=== PATIENT | male | born 1950 | race Caucasian/White ===

== ENCOUNTER 2020-07-27 11:47 | Outpatient (REF) | payer MEDICARE, SELFPAY ==
--- NOTE | 2020-07-27 11:55 | XR_ITS ---
EXAMINATION: XR KNEE, LEFT CLINICAL INFORMATION: Left knee pain COMPARISON: None TECHNIQUE: Four views of the left knee. FINDINGS: Bone alignment is normal. No fracture or dislocation is seen. The joint spaces are normal. There is no joint effusion. XR/XR knee LT 2V IMPRESSION: Normal left knee.
== END 2020-07-27 11:48 | disposition home or self-care (01) ==
LOC: HO.XRAY 11:47
PROVIDERS: PCP Internal Medicine; Visit Provider Internal Medicine
DX: M25.562 Pain in left knee (principal)
CPT/HCPCS: 73560

== ENCOUNTER 2020-12-24 03:13 | Emergency (ER) | payer MEDICARE, SELFPAY ==
--- NOTE | ~2020-12-24 | CT_ITS ---
EXAMINATION: CT ABDOMEN AND PELVIS WITHOUT CONTRAST CLINICAL INFORMATION: Abdominal pain. COMPARISON: 12/22/2008. TECHNIQUE: Contiguous axial thin section helical images of the abdomen and pelvis were performed without oral or IV contrast. The data set was reformatted in the coronal and sagittal planes and reviewed on an independent workstation. DLP: 616 mGy-cm. FINDINGS: The visualized lung bases are clear. The visualized portions of the heart are unremarkable. The liver is of normal size and attenuation without focal lesions nor intrahepatic biliary ductal dilation. A normal gallbladder is identified. There is no wall thickening or discernible pericholecystic fluid. The spleen, pancreas, adrenal glands are unremarkable. Both kidneys are of normal size and attenuation without hydronephrosis or nephrolithiasis. There is no abdominal free fluid. There is neither mesenteric nor retroperitoneal lymphadenopathy. There is extensive diverticulosis. There is a small focus of fat stranding and wall thickening about a few of the sigmoid diverticula. Otherwise, unremarkable unopacified loops of small and large bowel are identified. A normal appendix is identified. There is no pelvic free fluid. The urinary bladder is unremarkable. There is neither pelvic nor inguinal lymphadenopathy. Bone windows: Neither sclerotic nor lytic bone lesions are identified. There is disc height loss at L5/S1. CT/CT abdomen pelvis wo con IMPRESSION: Diverticulosis and diverticulitis without drainable fluid collections. Automated exposure control (Care Dose) Adjustment of the mA and/or kv according to patient size (this includes techniques or standardized protocols for targeted exams where dose is matched to indication / reason for exam; i.e. extremities or head).
[2020-12-24 03:34] VITALS: BP 126/70; PULSE 64; RESP 15; TEMP 36; O2SAT 98; BMI 30.6
--- NOTE | 2020-12-24 04:07 | ED.ABDPAIN ---
HPI - Abdominal Pain General Chief Complaint: Abdominal Pain Stated Complaint: Urinary retention Time Seen by Provider: 12/24/20 03:58 Source: patient Mode of arrival: ambulatory Limitations: no limitations History of Present Illness HPI narrative: 70 years old male came in for evaluation of lower abdominal pain with unable to have a bowel movement. Came in with diffuse abdominal pain started 4 days ago feel like pressure inside his belly, patient was unable to have a bowel movement for the past 4 days, able to pass gas, no nausea, no vomiting. Never had surgery in the abdomen. Patient is concerned today because normally have a bowel movement every day. Related Data Home Medications Medication Instructions Recorded Confirmed atorvastatin 1 tab PO DAILY 12/24/20 12/24/20 blood sugar diagnostic [FreeStyle 12/24/20 12/24/20 Lite Strips] lancets [TRUEplus Lancets] 12/24/20 12/24/20 lisinopril 1 tab PO DAILY 12/24/20 12/24/20 metformin 1 tab PO BID 12/24/20 12/24/20 omeprazole 1 cap PO DAILY 12/24/20 12/24/20 Previous Rx's Medication Instructions Recorded ciprofloxacin HCl [Cipro] 500 mg PO Q12H #14 tab 12/24/20 metronidazole [Flagyl] 500 mg PO Q12H #14 tab 12/24/20 Allergies Allergy/AdvReac Type Severity Reaction Status Date / Time No Known Allergies Allergy Unknown Verified 12/24/20 03:44 Review of Systems Review of Systems All other systems are reviewed and are negative Constitutional: Reports as per HPI and Reports no additional constitutional complaints Eyes: Reports as per HPI and Reports no additional eye complaints Reports system reviewed and no additional complaints, except as documented Cardiovascular: Reports as per HPI and Reports no additional cardiovascular complaints Respiratory: Reports as per HPI and Reports no additional respiratory complaints Gastrointestinal: Reports as per HPI and Reports no additional gastrointestinal complaints Genitourinary: Reports no additional female genitourinary complaints Musculoskeletal: Reports no additional musculoskeletal complaints Skin/Breast: Reports system reviewed and no additional complaints, except as docu Psychiatric: Reports no additional psychiatric complaints Endocrine: Reports no additional endocrine complaints Hematologic/Lymphatic: Reports no additional hematologic/lymphatic complaints Allergic/Immunologic: Reports no additional allergic/immunologic complaints Reports system reviewed and no additional complaints, except as documented and Reports Abnormal speech present Physical Exam Vital Signs: Vital Signs: Last Vital Signs Temp 96.8 F 12/24/20 03:34 Pulse 80 12/24/20 05:34 Resp 16 12/24/20 05:34 BP 115/59 L 12/24/20 05:34 Pulse Ox 97 12/24/20 05:34 Body Mass Index 30.6 Vital signs have been reviewed as appeared to be correct. Blood pressure normal. Heart rate normal. Respiration rate normal. Temperature normal. Oxygen saturation normal. Appearance: Alert. Oriented X3. No acute distress. Head: Normal external exam. Normocephalic. Atraumatic. No Merino signs noted. No raccoon eyes noted Eyes: PERRLA. EOMI. Conjunctiva and sclera normal. Eyelids normal. ENT: TM's Normal. Pharynx normal. Uvula midline. Moist mucous membranes. No trismus noted. No drooling noted. No muffled voice noted. Neck: Normal inspection. Neck supple. FROM. No adenopathy. Thyroid Normal. No meningeal signs. No neck mass noted. CVS: Normal heart rate and rhythm. Heart sound normal. No murmurs noted. Pulses normal throughout. Respiratory: No respiratory distress. Painless inspiration. Breath sounds normal. No wheezes/rales/rhonchi noted. Chest nontender. No accessory muscle usage noted or decreased air movement noted. Abdomen: Soft, mild lower abdominal tenderness with no rebound tenderness or guarding.. Bowel sounds normal in all 4 quadrants. No distention noted. No organomegaly noted. No visible injury noted. Back: No CVA tenderness. Full range of motion noted. Skin: Skin warm and dry. Normal skin color. Normal skin turgor. No rashes/lesions/lacerations noted. Extremities: No lower extremity edema. Extremities exhibit normal range of motion. Extremities nontender. Neuro: Oriented X 3. No motor deficit. No sensory deficit. Reflexes normal. Course Course Course Narrative: Assessment and plan. 70-year-old male came in with mild lower abdominal pain and unable to have bowel movement for the past 4 days, no nausea, no vomiting, no diarrhea. Exam is significant for a mild no lower abdominal tenderness with no rebound or guarding, patient has leukocytosis, CT of the abdomen pelvis is consistent with diverticulosis with mild diverticulitis. Patient was given option to stay in the hospital for IV hydration/antibiotic verses go home with p.o. antibiotic patient opted to to go home with oral antibiotic, patient was instructed to return if symptoms is worsening or not getting better. MDM - Abdominal Pain Lab Data Attestation: I reviewed the patient's lab results. Result diagrams: 12/24/20 05:11 12/24/20 05:40 Labs: Lab Results 12/24/20 12/24/20 Range/Units 05:11 05:40 WBC 13.3 H (4.8-10.8) X10*3/uL RBC 4.75 (4.60-5.80) X10*6/uL Hgb 14.1 (14.0-18.0) g/dl Hct 43.9 (42-52) % MCV 92.4 (80-98) fL MCH 29.7 (27.0-33.0) pg MCHC 32.1 (31.0-36.0) g/dl RDW 14.2 (11.0-16.0) % Plt Count 124 L (160-400) X10*3/uL MPV 12.7 H (9.4-12.4) fL Immature Gran % (Auto) 0.3 (0.0-0.4) % Neut % (Auto) 70.0 (45-73) % Lymph % (Auto) 18.3 L (20-40) % Cecil % (Auto) 8.0 (2-11) % Eos % (Auto) 2.9 (0-4) % Baso % (Auto) 0.5 (0-2) % Lymph # (Auto) 2.4 (1.2-4.9) X10*3/uL Cecil # (Auto) 1.1 (0.1-1.2) X10*3/uL Eos # (Auto) 0.4 (0.0-0.4) X10*3/uL Baso # (Auto) 0.1 (0.0-0.2) X10*3/uL Abs Immat Gran (auto) 0.04 H (0.00-0.03) X10*3/uL Absolute Neuts (auto) 9.3 H (2.0-8.3) X10*3/uL Absolute Nucleated RBC 0.000 (0.0-0.012) X10*3/uL Nucleated RBC % (auto) 0.0 (0.0-0.2) /100WBC Smear Tech's Comments VERIFIED Sodium 142 (135-145) mmol/L Potassium 4.4 (3.3-5.1) mmol/L Chloride 106 (96-108) mmol/L Carbon Dioxide 30 H (22-29) mmol/L Anion Gap 10 L (12-20) BUN 15 (9-16) mg/dL Creatinine 0.73 (0.5-1.4) mg/dL Estim Creat Clear Calc 96.2 Estimated GFR > 60 Random Glucose 135 H (60-115) mg/dL Calcium 8.9 (8.4-10.2) mg/dL Total Bilirubin < 0.2 (0.0-1.0) mg/dL Direct Bilirubin < 0.2 (0.0-0.5) mg/dL AST 14 (5-37) U/L ALT 24 (0-40) U/L Alkaline Phosphatase 123 H (39-117) U/L Total Protein 6.6 (6.5-8.0) g/dL Albumin 4.0 (3.5-5.0) g/dL Lipase 16 (8-78) U/L Imaging Data CT scan - abdomen: Radiologist's impression: Diverticulosis and diverticulitis without drainable fluid collections. Discharge Plan Discharge Clinical Impression: Diverticulitis Patient Disposition: Home, Self-Care Instructions: Diverticulitis (ED), Diverticulitis Diet (ED) Prescriptions: New ciprofloxacin HCl [Cipro] 500 mg tablet 500 mg PO Q12H Qty: 14 RF: 0 metronidazole [Flagyl] 500 mg tablet 500 mg PO Q12H Qty: 14 RF: 0 No Action atorvastatin 40 mg tablet 1 tab PO DAILY RF: 0 lisinopril 20 mg tablet 1 tab PO DAILY RF: 0 (DME) FreeStyle Lite Strips Strip MISCELLANEOUS BID RF: 0 metformin 1,000 mg tablet 1 tab PO BID RF: 0 omeprazole 20 mg capsule,delayed release(DR/EC) 1 cap PO DAILY RF: 0 (DME) lancets [TRUEplus Lancets] 33 gauge misc MISCELLANEOUS BID RF: 0 Referrals: Luis F Navarrete MD [Primary Care Provider] - 2 days [facility] Past Medical History Medical History Diabetes High cholesterol Surgical History No history of previous surgery Social History Social History Smoking Status: Current every day smoker Use of substances other than those prescribed or required for medical reasons: No Advance Directives: No Advance Directives Information Provided: No
[2020-12-24 05:15] LABS: Eosinophils Percent Auto 2.9 % (0-4); Imm Gran Abs Auto 0.04 X10*3/uL (0.00-0.03); Imm Gran Pct Auto 0.3 % (0.0-0.4); MANUAL DIFF FLAG SCAN; Neutrophils Absolute Auto 9.3 X10*3/uL (2.0-8.3); PLT CLUMP 1; Red Cell Distribution Width 14.2 % (11.0-16.0); SCAN SMEAR FLAG 1
[2020-12-24 05:17] LABS: Basophils Absolute Auto 0.1 X10*3/uL (0.0-0.2); Basophils Percent Auto 0.5 % (0-2); Eosinophils Absolute Auto 0.4 X10*3/uL (0.0-0.4); Hematocrit 43.9 % (42-52); Hemoglobin 14.1 g/dl (14.0-18.0); Lymphocytes Absolute Auto 2.4 X10*3/uL (1.2-4.9); Lymphocytes Percent Auto 18.3 % (20-40); Mean Corpuscular HGB Conc 32.1 g/dl (31.0-36.0); Mean Corpuscular Hemoglobin 29.7 pg (27.0-33.0); Mean Corpuscular Volume 92.4 fL (80-98); Mean Platelet Volume 12.7 fL (9.4-12.4); Monocytes Absolute Auto 1.1 X10*3/uL (0.1-1.2); Platelet Count 124 X10*3/uL (160-400); Red Blood Count 4.75 X10*6/uL (4.60-5.80); White Blood Count 13.3 X10*3/uL (4.8-10.8)
[2020-12-24 05:34] VITALS: BP 115/59; PULSE 80; RESP 16; O2SAT 97
[2020-12-24 05:36] LABS: SLIDE REVIEW VERIFIED
[2020-12-24 06:00] VITALS: BP 120/68; PULSE 81; RESP 16; TEMP 36.4; O2SAT 99
[2020-12-24 06:15] LABS: Alanine Aminotransferase 24 U/L (0-40); Alkaline Phosphatase 123 U/L (39-117); Anion Gap 10 (12-20); Aspartate Amino Transferase 14 U/L (5-37); Bilirubin Direct < 0.2 mg/dL (0.0-0.5); Bilirubin Total < 0.2 mg/dL (0.0-1.0); Blood Urea Nitrogen 15 mg/dL (9-16); Calcium 8.9 mg/dL (8.4-10.2); Carbon Dioxide 30 mmol/L (22-29); Chloride 106 mmol/L (96-108); Creatinine Clr Calc Pharmacy 96.2; Estimated Glomerular Filt Rate > 60; Glucose Random 135 mg/dL (60-115); Lipase 16 U/L (8-78); Potassium 4.4 mmol/L (3.3-5.1); Sodium 142 mmol/L (135-145); Total Protein 6.6 g/dL (6.5-8.0)
[2020-12-24] MEDS: levoFLOXacin 500 MG TABLET PO (06:40)
[2020-12-24] MEDS: metroNIDAZOLE 500 MG TABLET PO (06:40)
[2020-12-24] MEDS: Ibuprofen 600 MG TABLET PO (06:40)
== END 2020-12-24 07:04 | disposition home or self-care (01) ==
PROVIDERS: Emergency Provider Emergency Medicine; PCP Internal Medicine
DX: K57.32 Diverticulitis of large intestine without perforation or abscess without bleeding (principal); E11.9 Type 2 diabetes mellitus without complications; E78.5 Hyperlipidemia, unspecified; F17.200 Nicotine dependence, unspecified, uncomplicated; Z79.84 Long term (current) use of oral hypoglycemic drugs; Z79.02 Long term (current) use of antithrombotics/antiplatelets
CPT/HCPCS: 36415; 74176; 80048; 80076; 83690; 85025; 99284

== ENCOUNTER 2022-10-16 14:05 | Emergency (ER) | payer MEDICARE, SELFPAY ==
--- NOTE | ~2022-10-16 | CT_ITS ---
EXAMINATION: CT ABDOMEN AND PELVIS WITHOUT CONTRAST CLINICAL INFORMATION: Left lower quadrant pain and constipation COMPARISON: CT abdomen pelvis 12/24/2020 TECHNIQUE: Multidetector volumetric imaging was performed from the superior aspect of the liver through the pubic symphysis. Sagittal and coronal reformatted images were obtained on the technologist's workstation. This CT examination was performed using dose optimization techniques as appropriate, variously including the following: *Automated exposure control *Adjustment of mA and/or kV according to patient size (this includes techniques or standardized protocols for targeted exams where dose is matched to indication/reason for exam; i.e. extremities or head) *Use of iterative reconstruction technique DLP: 584 mGy-cm FINDINGS: LUNG BASES: The visualized lung bases are unremarkable. LIVER, GALLBLADDER, AND BILIARY TREE: The liver is normal in size, shape, and attenuation. No focal hepatic lesion or biliary ductal dilatation is present. The gallbladder is unremarkable with no evidence of radiopaque gallstones, gallbladder wall thickening, or obvious pericholecystic inflammatory changes. PANCREAS: Some punctate calcifications are seen in the pancreas which is otherwise unremarkable SPLEEN: Unremarkable. ADRENAL GLANDS: Unremarkable. KIDNEYS AND URETERS: The kidneys are normal in size, shape, and attenuation. No hydronephrosis, hydroureter, or calculi seen. No perinephric stranding. BLADDER: Unremarkable. GASTROINTESTINAL TRACT: Moderately extensive colonic diverticula are present. At the junction of the descending colon and sigmoid, there is an area of inflammatory change seen around the colon consistent with acute uncomplicated diverticulitis. Similar changes were present on the 12/24/2020 study in a similar location. No extraluminal gas. No drainable fluid collection. A duodenal diverticulum is present. The small and large bowel are otherwise unremarkable. The appendix is unremarkable. ABDOMINAL WALL: No significant hernia is appreciated. LYMPH NODES: No retroperitoneal lymphadenopathy VASCULAR: Unremarkable. PELVIC VISCERA: Mild BPH. Seminal vesicles normal. OSSEOUS STRUCTURES: Mild degenerative changes seen in the spine. CT/CT abdomen pelvis wo IV con IMPRESSION: Acute uncomplicated diverticulitis at the junction of the descending colon and sigmoid. Fleischner guidelines were followed.
[2022-10-16 14:54] VITALS: BP 153/72; PULSE 72; RESP 16; TEMP 35.9; O2SAT 97; BMI 29.1
--- NOTE | 2022-10-16 14:54 | ED_ITS ---
HPI - Abdominal Pain General Chief Complaint: Abdominal Pain Stated Complaint: LLQ pain sent by PCP Time Seen by Provider: 10/16/22 18:13 Source: patient Mode of arrival: ambulatory Limitations: no limitations History of Present Illness HPI narrative: 72 y/o male with history of HTN, DM2, HLD and history of diverticulitis who presents to the ER for evaluation of LLQ pain that started 5 days ago. He also reports constipation with no BM in those 5 days. No nausea, vomiting, fever, chills, urinary symptoms, back pain. He reports the pain comes and goes in the left lower quadrant, left pelvic area, aching and mild. MD elicited complaint: abdominal pain Pertinent past history: diverticulitis Pain Consistency: intermittent Location: LLQ Severity: mild Quality: aching Radiation: none Exacerbating factors: nothing Relieving factors: nothing Context: history of similar episodes Associated symptoms: constipation Related Data Home Medications Medication Instructions Recorded Confirmed atorvastatin 40 mg tablet 1 tab PO DAILY 12/24/20 12/24/20 blood sugar diagnostic (FreeStyle 12/24/20 12/24/20 Lite Strips) lancets 33 gauge (TRUEplus Lancets) 12/24/20 12/24/20 lisinopril 20 mg tablet 1 tab PO DAILY 12/24/20 12/24/20 metformin 1,000 mg tablet 1 tab PO BID 12/24/20 12/24/20 omeprazole 20 mg capsule,delayed 1 cap PO DAILY 12/24/20 12/24/20 release Previous Rx's Medication Instructions Recorded ciprofloxacin HCl 500 mg tablet 500 mg PO Q12H #14 tabs 12/24/20 (Cipro) ciprofloxacin HCl 500 mg tablet 500 mg PO Q12H #14 tabs 12/24/20 (Cipro) ciprofloxacin HCl 500 mg tablet 500 mg PO Q12H #14 tabs 12/24/20 (Cipro) metronidazole 500 mg tablet 500 mg PO BID #14 tabs 12/24/20 (Flagyl) metronidazole 500 mg tablet 500 mg PO Q12H #14 tabs 12/24/20 (Flagyl) ciprofloxacin HCl 500 mg tablet 500 mg PO Q12H #20 tabs 10/16/22 ibuprofen 600 mg tablet 600 mg PO Q8H PRN pain #14 tabs 10/16/22 metronidazole 500 mg tablet 500 mg PO BID 10 days #20 tabs 10/16/22 polyethylene glycol 3350 17 17 g PO BID #119 grams 10/16/22 gram/dose oral powder (Miralax) sennosides 8.6 mg capsule (senna) 8.6 mg PO DAILY #14 caps 10/16/22 Allergies Allergy/AdvReac Type Severity Reaction Status Date / Time No Known Allergies Allergy Unknown Verified 12/24/20 03:44 Review of Systems Review of Systems Yes all other systems are reviewed and are negative [facility] Past Medical History Medical History Diabetes High cholesterol Surgical History No history of previous surgery Social History Social History Advance Directives: No Advance Directives Information Provided: Yes Physical Exam ED Vital Signs: Vital Signs - 24 hr 10/16/22 14:54 Temperature 96.6 F L Pulse Rate 72 Respiratory Rate 16 Blood Pressure 153/72 H Pulse Oximetry 97 Oxygen Delivery Method Room Air BMI result Body Mass Index 29.1 Appearance: Alert. Oriented X3. No acute distress. HEENT: normal external inspection Neck: Normal inspection. Neck supple. CVS: Normal heart rate and rhythm. Pulses normal. Respiratory: No respiratory distress. Breath sounds normal. Abdomen: Soft with mild LLQ tenderness, no rebound or guarding. +BS x4 Skin: Skin warm and dry. Normal skin color. Normal skin turgor. No rashes. Extremities: Normal inspection x4 Neuro: Oriented X 3. Grossly normal, nonfocal Course Course Course Narrative: RME - 72 yo male with history of DM, HTN, HLD and diverticulitis presenting with LLQ pain with constipation, last BM 5 days ago. No N/V/D or signs of obstruction. Labs and CT scan ordered from triage. Stable to go back to waiting room until treatment room available. Reevaluation(s) Reevaluation #1: WBC 12.[address] scan showing acute uncomplicated diverticulitis of the junction of the descending colon and sigmoid colon. No evidence of abscess. Patient reports only mild pain in left lower quadrant only. No radiation of the pain. No vomiting. No fevers. Comfortable discharge home with oral antibiotics, pain control. Medical Decision Making Differential Diagnosis Differential Diagnoses: The differential diagnosis associated with the presentation includes Constipation, diverticulitis, diverticular abscess, colon perforation, bowel obstruction, gastroenteritis, UTI, kidney stone Admission/Observation Consideration of admission/observation: Escalation of care including admission/observation considered Mild leukocytosis, tolerating p.o., pain well controlled, comfortable discharge home Lab Data MDM Lab Attestation statement: I reviewed the patient's lab results. Mild leukocytosis, mild hyperglycemia, normal renal function. 10/16/22 16:35 10/16/22 16:35 Labs: Lab Results 10/16/22 10/16/22 Range/Units 16:35 16:35 WBC 12.2 H (4.8-10.8) X10*3/uL RBC 4.73 (4.60-5.80) X10*6/uL Hgb 14.6 (14.0-18.0) g/dl Hct 43.0 (42.0-52.0) % MCV 90.9 (80.0-98.0) fL MCH 30.9 (27.0-33.0) pg MCHC 34.0 (31.0-36.0) g/dl RDW 14.3 (11.0-16.0) % Plt Count 174 (160-400) X10*3/uL MPV 12.4 (9.4-12.4) fL Immature Gran % (Auto) 0.5 H (0.0-0.4) % Neut % (Auto) 67.7 (45-73) % Lymph % (Auto) 19.8 L (20-40) % Terrell % (Auto) 8.0 (2-11) % Eos % (Auto) 3.3 (0-4) % Baso % (Auto) 0.7 (0-2) % Lymph # (Auto) 2.4 (1.2-4.9) X10*3/uL Terrell # (Auto) 1.0 (0.1-1.2) X10*3/uL Eos # (Auto) 0.4 (0.0-0.4) X10*3/uL Baso # (Auto) 0.1 (0.0-0.2) X10*3/uL Abs Immat Gran (auto) 0.06 H (0.00-0.03) X10*3/uL Absolute Neuts (auto) 8.3 (2.0-8.3) x10*3/uL Absolute Nucleated RBC 0.000 (0.0-0.012) X10*3/uL Nucleated RBC % (auto) 0.0 (0.0-0.2) /100WBC Sodium 142 (135-145) mmol/L Potassium 4.2 (3.3-5.1) mmol/L Chloride 106 (96-108) mmol/L Carbon Dioxide 27 (22-29) mmol/L Anion Gap 13 (12-20) BUN 16 (9-16) mg/dL Creatinine 0.76 (0.5-1.4) mg/dL Estim Creat Clear Calc 87.8 Estimated GFR > 60 Random Glucose 172 H (60-115) mg/dL Calcium 9.4 (8.4-10.2) mg/dL Magnesium 2.0 (1.6-2.6) mg/dL Total Bilirubin 0.3 (0.0-1.0) mg/dL Direct Bilirubin < 0.2 (0.0-0.5) mg/dL AST 14 (5-37) U/L ALT 38 (0-40) U/L Alkaline Phosphatase 133 H (39-117) U/L Total Protein 7.3 (6.5-8.0) g/dL Albumin 4.2 (3.5-5.0) g/dL Radiology Impression Discussion of test interpretation with radiology: I have reviewed the radiologist's reading. Radiologist Impression: CT/CT abdomen pelvis wo IV con IMPRESSION: Acute uncomplicated diverticulitis at the junction of the descending colon and sigmoid. External Record Review External record reviewed: Office record, Outpatient record, Prior outpatient labs and Prior outpatient radiology Prescription Management I considered prescription management with: Pain Medication and Antibiotic Critical Care Time Critical Care Time Critical Care Time: No Discharge Plan Discharge Clinical Impression: Diverticulitis Patient Disposition: Home, Self-Care Instructions: Diverticulitis (ED), Diverticulitis Diet (ED) Additional Instructions: Your CT scan showed diverticulitis. Take all of the medications as directed Follow up with your doctor next week. If you develop new or worsening symptoms call 911 or come back to the ER for fu rther evaluation. Weldon tomograf?a computarizada mostr? diverticulitis. [address] todos los medicamentos seg?n las indicaciones. Seguimiento con weldon m?dico la pr?xima semana. Si desarrolla s?ntomas nuevos o que empeoran, llame al 911 o regrese a la pato de emergencias para toby evaluaci?n adicional. Prescriptions: New ciprofloxacin HCl 500 mg tablet 500 mg PO Q12H Qty: 20 0RF ibuprofen 600 mg tablet 600 mg PO Q8H PRN (Reason: pain) Qty: 14 0RF metronidazole 500 mg tablet 500 mg PO BID 10 Days Qty: 20 0RF polyethylene glycol 3350 [Miralax] 17 gram/dose powder 17 g PO BID Qty: 119 0RF senna 8.6 mg capsule 8.6 mg PO DAILY Qty: 14 0RF No Action atorvastatin 40 mg tablet 1 tab PO DAILY lisinopril 20 mg tablet 1 tab PO DAILY (DME) FreeStyle Lite Strips Strip MISCELLANEOUS BID metformin 1,000 mg tablet 1 tab PO BID omeprazole 20 mg capsule,delayed release(DR/EC) 1 cap PO DAILY (DME) lancets [TRUEplus Lancets] 33 gauge misc MISCELLANEOUS BID ciprofloxacin HCl [Cipro] 500 mg tablet 500 mg PO Q12H Qty: 14 0RF metronidazole [Flagyl] 500 mg tablet 500 mg PO Q12H Qty: 14 0RF ciprofloxacin HCl [Cipro] 500 mg tablet 500 mg PO Q12H Qty: 14 0RF metronidazole [Flagyl] 500 mg tablet 500 mg PO BID Qty: 14 0RF ciprofloxacin HCl [Cipro] 500 mg tablet 500 mg PO Q12H Qty: 14 0RF Referrals: Luis F Navarrete MD [Primary Care Provider] - Interventions: ED Discharge Assessment Last Done: 10/16/22 18:20 Discharge Date/Time: 10/16/22 18:20 Print Language: Tajik
[2022-10-16 16:40] LABS: MANUAL DIFF FLAG NO
[2022-10-16 16:44] LABS: Basophils Absolute Auto 0.1 X10*3/uL (0.0-0.2); Basophils Percent Auto 0.7 % (0-2); Eosinophils Absolute Auto 0.4 X10*3/uL (0.0-0.4); Eosinophils Percent Auto 3.3 % (0-4); Hemoglobin 14.6 g/dl (14.0-18.0); Imm Gran Abs Auto 0.06 X10*3/uL (0.00-0.03); Imm Gran Pct Auto 0.5 % (0.0-0.4); Lymphocytes Absolute Auto 2.4 X10*3/uL (1.2-4.9); Lymphocytes Percent Auto 19.8 % (20-40); Mean Corpuscular Hemoglobin 30.9 pg (27.0-33.0); Mean Corpuscular Volume 90.9 fL (80.0-98.0); Mean Platelet Volume 12.4 fL (9.4-12.4); Neutrophils Absolute Auto 8.3 x10*3/uL (2.0-8.3); Neutrophils Percent Auto 67.7 % (45-73); Platelet Count 174 X10*3/uL (160-400); Red Blood Count 4.73 X10*6/uL (4.60-5.80); Red Cell Distribution Width 14.3 % (11.0-16.0); White Blood Count 12.2 X10*3/uL (4.8-10.8)
[2022-10-16 17:05] LABS: Alanine Aminotransferase 38 U/L (0-40); Albumin Level 4.2 g/dL (3.5-5.0); Alkaline Phosphatase 133 U/L (39-117); Anion Gap 13 (12-20); Aspartate Amino Transferase 14 U/L (5-37); Bilirubin Direct < 0.2 mg/dL (0.0-0.5); Bilirubin Total 0.3 mg/dL (0.0-1.0); Blood Urea Nitrogen 16 mg/dL (9-16); Calcium 9.4 mg/dL (8.4-10.2); Carbon Dioxide 27 mmol/L (22-29); Chloride 106 mmol/L (96-108); Creatinine Clr Calc Pharmacy 87.8; Estimated Glomerular Filt Rate > 60; Glucose Random 172 mg/dL (60-115); Potassium 4.2 mmol/L (3.3-5.1); Sodium 142 mmol/L (135-145); Total Protein 7.3 g/dL (6.5-8.0)
== END 2022-10-16 18:20 | disposition home or self-care (01) ==
PROVIDERS: Physician Assistant; Emergency Provider Emergency Medicine; PCP Internal Medicine
DX: K57.32 Diverticulitis of large intestine without perforation or abscess without bleeding (principal); R10.32 Left lower quadrant pain; Z79.899 Other long term (current) drug therapy
CPT/HCPCS: 36415; 74176; 80048; 80076; 83735; 85025; 99282; 99284

== ENCOUNTER 2023-03-08 08:15 | Day surgery (SDC) | payer MEDICARE, SELFPAY ==
[2023-03-08 08:39] VITALS: BMI 27.9
[2023-03-08 09:05] VITALS: BP 127/73; PULSE 59; RESP 18; TEMP 36.6; O2SAT 97
[2023-03-08 09:13] LABS: Glucose, Whole Blood 125 mg/dL (60-115)
[2023-03-08] MEDS: Lactated Ringers 1,000 ML 50 ML IVCONT (09:16)
--- NOTE | 2023-03-08 09:34 | HO.ANESPROP2 ---
COUNT INCLUDES THE [facility] Past Medical History Medical History (Updated 03/07/23 @ 11:57 by Trista Etienne RN) Back pain Depression Diabetes High cholesterol HTN (hypertension) Kidney stones Sleep apnea Spinal stenosis Family History Family history of problems with anesthesia: No Surgical History Surgical History H/O colonoscopy H/O hemorrhoidectomy H/O inguinal hernia repair History of Problems with Anesthesia: No Social History Social History Patient Tobacco Use Status: Current everyday Tobacco user Smoked in Last 30 Days: Yes Patient Interested in Nicotine Replacement: No Are you DNR?: No Advance Directives: No Advance Directives Information Provided: Yes Nutrition Risks: No Nutritional Risk Meds Allergies Allergy/AdvReac Type Severity Reaction Status Date / Time No Known Allergies Allergy Unknown Verified 03/08/23 09:20 Active Medications: Current Medications Lactated Ringer's (Lr) 1,000 mls @ 50 mls/hr IVCONT .Q20H BERNADETTE Last Admin: 03/08/23 09:16 Dose: 50 mls/hr Sodium Biphosphate/Sodium Phosphate (Sodium Phosphate,Toole-Dibasic 133 Ml Enema) 133 ml [place] ONCE PRN PRN Reason: Poor Colonoscopy Prep Results Home Medications Medication Instructions Recorded Confirmed Last Taken Type atorvastatin 40 mg tablet 1 tab PO DAILY 12/24/20 12/24/20 Unknown History blood sugar diagnostic (FreeStyle 12/24/20 12/24/20 Unknown History Lite Strips) lancets 33 gauge (TRUEplus Lancets) 12/24/20 12/24/20 Unknown History lisinopril 20 mg tablet 1 tab PO DAILY 12/24/20 12/24/20 Unknown History omeprazole 20 mg capsule,delayed 1 cap PO DAILY 12/24/20 12/24/20 Unknown History release glipizide 10 mg tablet, extended 10 mg PO QAM 03/07/23 03/07/23 Unknown History release 24 hr metformin 1,000 mg tablet 1,000 mg PO BID 03/07/23 03/07/23 Unknown History Exam Exam Date and Time: March 08, 2023 0934 Height,Weight and Vital Signs: Height 5 ft 6 in Weight 78.471 kg Last Vital Signs Temp 97.9 F 03/08/23 09:05 Pulse 59 03/08/23 09:05 Resp 18 03/08/23 09:05 BP 127/73 03/08/23 09:05 Pulse Ox 97 03/08/23 09:05 O2 Del Method Room Air 03/08/23 09:05 Pertinent Lab Results Pertinent Lab Results: Laboratory Tests 03/08/23 08:56 POC Glucose 125 H Airway Mallampati Class: III TM Dist: >3cm Neck ROM: Full Assessment and Plan Assessment Anesthesia Assessment: Anesthesia Plan Discussed and Chart Reviewed Final Anesthetic Review Family History of Problems with Anesthesia: No History of Problems with Anesthesia: No NPO: Yes ASA Class: III Final Preanesthetic Review: No Changes in Pt Med Stat, Meds/Allgs Chart Reviewed, Consent Obtained/Reviewed and Anes Risks/Benef Reviewed Patient Risk: Low Procedure Risk: Low Anesthetic Plan Anesthetic Plan: MAC: Disposition: Standard PACU
[2023-03-08 10:17] VITALS: BP 115/69; PULSE 60; RESP 15; TEMP 36.4; O2SAT 96
--- NOTE | 2023-03-08 10:17 | P.BOP_ITS ---
Brief Operative Note Date of Service: 03/08/23 Pre-op diagnosis: Screening Post-op diagnosis: other (Colon polyp) Procedure: Colonoscopy to the cecum with hot snare polypectomy Surgeon: Prakash Sheth Anesthesia: MAC Was an Automatic Equipment Technician used for this Procedure?: No Estimated blood loss (mL): 0 Pathology: other (A. Polyp at 60cm) Condition: stable Disposition: PACU
[2023-03-08 10:32] VITALS: BP 144/78; PULSE 69; RESP 18; TEMP 36.4; O2SAT 99
--- NOTE | 2023-03-08 21:50 | OP_ITS ---
DATE OF SERVICE: 03/08/2023 SURGEON: Prakash Sheth MD INDICATIONS: The patient presents for followup of colorectal cancer screening and personal history of tubular adenoma of the colon. Full consent has been obtained from him for this, including risks of bleeding and perforation. PREOPERATIVE DIAGNOSIS: Colorectal cancer screening and personal history of tubular adenoma of the colon. POSTOPERATIVE DIAGNOSIS: PROCEDURE PERFORMED: Colonoscopy to the cecum with hot snare polypectomy. ESTIMATED BLOOD LOSS: COMPLICATIONS: ANESTHESIA: Monitored anesthesia care. ASSISTANTS: SPECIMENS: POSTOPERATIVE DIAGNOSES: Colorectal cancer screening and personal history of tubular adenoma of the colon, colon polyp, diverticulosis and internal hemorrhoids. DESCRIPTION OF PROCEDURE: The patient was placed in the left lateral decubitus position. The digital rectal exam revealed a somewhat diminished sphincter tone and some hemorrhoidal tissue. The Olympus video pediatric colonoscope was entered into the rectum and advanced into the cecum with the assistance of abdominal pressure. Once in the cecum, I did identify a cecal pouch with appendiceal orifice and a normal-appearing ileocecal valve. There was transillumination of light deep in the right lower quadrant. I did have to irrigate and suction the cecum to be able to obtain a good visualization. The scope was then slowly withdrawn, assessing all mucosal surfaces carefully. Preparation throughout the colon was for the most part good, but did require a lot of suctioning and irrigation. At 60 cm was an approximately 12 mm polyp, which was removed by hot snare polypectomy and recovered by suction. The polypectomy site appeared clean, without any sign of residual polyp nor bleeding. I did not visualize any other polyps, colitis, or angiodysplasia. There was a mild amount of sigmoid diverticulosis. In the rectum, scope was retroflexed visualizing internal hemorrhoids, but no other pathology. The rectal mucosa appeared normal. The scope was straightened and withdrawn from the patient. He tolerated the procedure well and was returned to recovery area in stable condition. IMPRESSION: 1. Colon polyp. 2. Diverticulosis. 3. Internal and external hemorrhoids. PLAN: The results of the pathology will be checked. I would recommend a repeat colonoscopy in 3 years for further screening and surveillance given the finding of another polyp and the somewhat limited prep. He was advised not to use any aspirin and NSAIDs for 1 week. This has been discussed with the son. MD ELDA Aguilar/ABDOULAYE / [id number]
== END 2023-03-08 10:51 | disposition home or self-care (01) ==
PROVIDERS: Visit Provider Internal Medicine
PROC: 0DJD8ZZ Inspection of Lower Intestinal Tract, Via Natural or Artificial Opening Endoscopic (ICD-10-PCS; CPT 45378; principal; 2023-03-08 10:00)
DX: Z12.11 Encounter for screening for malignant neoplasm of colon (principal); Z86.010 Personal history of colon polyps; Z87.19 Personal history of other diseases of the digestive system; D12.4 Benign neoplasm of descending colon; K57.30 Diverticulosis of large intestine without perforation or abscess without bleeding; K64.8 Other hemorrhoids; K64.4 Residual hemorrhoidal skin tags; I10 Essential (primary) hypertension; E78.00 Pure hypercholesterolemia, unspecified; G47.30 Sleep apnea, unspecified; F32.A Depression, unspecified; E11.9 Type 2 diabetes mellitus without complications; Z87.442 Personal history of urinary calculi; Z79.84 Long term (current) use of oral hypoglycemic drugs; Z79.899 Other long term (current) drug therapy; F17.210 Nicotine dependence, cigarettes, uncomplicated
CPT/HCPCS: 45385; 82947; 88305

== ENCOUNTER 2023-07-11 09:34 | Outpatient (REF) | payer MEDICARE, SELFPAY ==
[2023-07-11 12:43] LABS: Prostate Specific Antigen 1.16 ng/mL (<0.05-4.0)
== END 2023-07-11 09:35 | disposition home or self-care (01) ==
LOC: HO.HHCL 09:34
PROVIDERS: Visit Provider Family Medicine
DX: R31.9 Hematuria, unspecified (principal); Z12.5 Encounter for screening for malignant neoplasm of prostate
CPT/HCPCS: 36415; 84153; 87086

== ENCOUNTER 2023-07-12 11:03 | Outpatient (REF) | payer MEDICARE, SELFPAY | END 2023-07-12 11:04 | disposition home or self-care (01) | LOC: HO.US 11:03 | PROVIDERS: Visit Provider Family Medicine | DX: Z13.89 Encounter for screening for other disorder (principal) ==

== ENCOUNTER 2023-08-12 10:36 | Outpatient (REF) | payer MEDICARE, SELFPAY ==
--- NOTE | ~2023-08-12 | US_ITS ---
EXAMINATION: US RETROPERITONEAL COMPLETE (RENAL) CLINICAL INFORMATION: Hematuria, history of renal stones, rule out mass, hydronephrosis, stones. COMPARISON: CT abdomen and pelvis without contrast 10/16/2022. TECHNIQUE: Real-time imaging of the kidneys and bladder. Limited visualization due to bowel gas. FINDINGS: RIGHT KIDNEY: 10.5 x 6.8 x 6.0 cm (SAG x AP x TRV). No hydronephrosis. No renal calculi. Renal cortical thickness is normal. Limited visualization. LEFT KIDNEY: 11.7 x 5.7 x 5.3 cm (SAG x AP x TRV). No hydronephrosis. No renal calculi. Renal cortical thickness is normal. Limited visualization. Left medial 1.5 x 1.3 x 1.2 cm cyst with benign features. There is no indication for follow-up imaging. BLADDER: Well-distended. Bilateral ureteral jets are demonstrated. Prevoid bladder volume is 423 mL. Postvoid bladder volume is 46.9 mL. ADDITIONAL FINDINGS: Enlarged prostate with volume 42.4 mL and echogenic foci characteristic of coarse calcifications. US/US retroperitoneal comp IMPRESSION: 1. No hydronephrosis. No renal calculi. Limited visualization. 2. Enlarged prostate. Post void bladder volume is 46.9 mL.
== END 2023-08-12 10:37 | disposition home or self-care (01) ==
LOC: HO.US 10:36
PROVIDERS: Visit Provider Family Medicine
DX: R31.9 Hematuria, unspecified (principal)
CPT/HCPCS: 76770

== ENCOUNTER 2023-08-28 08:03 | Outpatient (REF) | payer MEDICARE, SELFPAY ==
[2023-08-28 11:59] LABS: Creatinine Urine 141.46 mg/dL; Microalbum/Creatinine Ratio Ur 4.2 ug/mg cr (<30)
[2023-08-28 12:02] LABS: Alanine Aminotransferase 34 U/L (0-40); Albumin Level 4.2 g/dL (3.5-5.0); Alkaline Phosphatase 107 U/L (39-117); Anion Gap 14 (12-20); Aspartate Amino Transferase 19 U/L (5-37); Bilirubin Total 0.4 mg/dL (0.0-1.0); Blood Urea Nitrogen 22 mg/dL (9-16); Calcium 9.7 mg/dL (8.4-10.2); Carbon Dioxide 26 mmol/L (22-29); Chloride 109 mmol/L (96-108); Cholesterol 84 mg/dL (<200); Estimated Glomerular Filt Rate > 60; Glucose Random 127 mg/dL (60-115); HDL Cholesterol 26 mg/dL (>40); LDL Cholesterol Calculated 41 mg/dL (<100); Sodium 144 mmol/L (135-145); Total Protein 7.4 g/dL (6.5-8.0); Triglycerides 85 mg/dL (<150)
[2023-08-28 12:03] LABS: ~HepC Num1 0.13 S/CO (0.00-0.79); ~Hepatitis C Antibody Nonreactive (Nonreactive)
== END 2023-08-28 08:04 | disposition home or self-care (01) ==
LOC: HO.HHCL 08:03
PROVIDERS: Visit Provider Nurse Practitioner Family
DX: E11.9 Type 2 diabetes mellitus without complications (principal)
CPT/HCPCS: 36415; 80053; 80061; 82043; 82570; 86803

== ENCOUNTER 2023-10-03 08:37 | Outpatient (REF) | payer MEDICARE, SELFPAY ==
--- NOTE | ~2023-10-03 | US_ITS ---
EXAMINATION: US RETROPERITONEAL LIMITED (AORTA) CLINICAL INFORMATION: Tobacco abuse. COMPARISON: CT abdomen and pelvis 10/16/2022. TECHNIQUE: Ward-scale, color Doppler and spectral Doppler evaluation of the abdominal aorta. FINDINGS: The aorta is normal in caliber. The measurements of the aorta in maximum AP and transverse dimensions respectively are as follows: Proximal: 2.9 x 2.3 cm. Mid: 2.4 x 1.5 cm. Distal: 2.3 x 1.8 cm. PSV: 47.7 cm/s. The measurements of the common iliac arteries in maximum AP and TRV dimensions are as follows: Right Common Iliac Artery: 1.5 x 0.9 cm. Left Common Iliac Artery: 1.3 x 0.9 cm. US/US aorta IMPRESSION: Negative for abdominal aortic aneurysm.
== END 2023-10-03 08:38 | disposition home or self-care (01) ==
LOC: HO.US 08:37
PROVIDERS: Visit Provider Nurse Practitioner Family
DX: Z13.6 Encounter for screening for cardiovascular disorders (principal); Z72.0 Tobacco use
CPT/HCPCS: 76775

== ENCOUNTER 2023-11-08 10:10 | Outpatient (AMB) | payer MEDICARE, SELFPAY ==
--- NOTE | 2023-11-08 09:32 | MHC.OFFVIS ---
Intake Intake Visit Reasons: LDCT SD Universal Grinder Set Up Operator Required: Yes Universal Grinder Set Up Operator Name: Marjan Llanes Allergies No Known Allergies Allergy (Unknown, Verified 08/27/23 09:00) HPI HPI Comments History of Present Illness Details Teofilo is a pleasant 73 year old male, current smoker with a 53 PYH. Patient has been smoking since age 20 for 53 years at 1 ppd. Denies marijuana use. Reports exposure to chemicals such as nickel and chromium. Admits second hand smoke exposure. Reports family history of lung cancer, two sisters, never smokers. Denies personal history of cancers. Denies chest CT in last year. Reports recent travel outside the to [place]. Denies testing positive for COVID. Admits receiving COVID Vaccine. Denies fever, chills, chest pain, new cough, hemoptysis or unintentional weight loss. Lung Cancer Screening Questionnaire reviewed with patient by provider. Shared Decision Making Completed. Discussed in detail with patient, the risk versus benefit of LDCT screening. Patient in agreement of proceeding with scan. COUNT [facility]CLUD[facility] Medical History (Updated 11/08/23 @ 10:29 by Fouzia Caruso NP) Sleep apnea Kidney stones Depression Spinal stenosis Back pain HTN (hypertension) High cholesterol Diabetes Surgical History (System 08/27/23 @ 09:00 by Christiana Whatley) H/O inguinal hernia repair H/O hemorrhoidectomy H/O colonoscopy Social History (System 08/27/23 @ 09:00 by Christiana Whatley) Patient Tobacco Use Status: Current everyday Tobacco user Assessment & Plan Assessment & Plan (1) Nicotine dependence, cigarettes, uncomplicated: Code(s): F17.210 - Nicotine dependence, cigarettes, uncomplicated Plan Shared decision-making visit completed today in office. This patient meets criteria for LDCT for lung cancer screening purposes and is asymptomatic. Offered smoking cessation, patient is interested in referral to nurse navigator. Patient has been scheduled for a low dose chest CT for screening purposes at [facility]. We discussed how the results will be obtained depending on CT findings. RADS 1 and RADS 2 will receive a letter with results and will follow up for annual LDCT. Patient informed they will be contacted at later date to schedule upcoming LDCT scan. RADS 3 and RADS 4 will receive a telephone call, or an office visit after reviewing case at our Lung Cancer Conference to determine when the next LDCT will be scheduled or further interventions that may be needed. Discussed importance of screening program and compliance with yearly LDCT scan as scheduled. Risks, benefits, and alternatives were discussed in detail and patient agrees to proceed. Risks discussed include but are not limited to: radiation exposure and possibility of additional intervention for benign disease. Benefits include detection of lung cancer at an early stage. A copy of today's visit and LDCT results will be sent to patient's PCP. Incidental findings on LDCT are PCP's responsibility. If there are incidental findings, our office will ensure that PCP office is aware of these findings. All questions were answered and patient is in agreement of plan. Orders: Referrals Nurse Navigator Referral F17.210 - Nicotine dependence, cigarettes, uncomplicated Coding Level of Care Code Lung Cancer Screening G0296 Diagnoses Nicotine dependence, cigarettes, uncomplicated F17.210
== END 2023-11-08 10:25 | disposition home or self-care (01) ==
PROVIDERS: PCP Family Medicine; Referring Provider Nurse Practitioner Family; Visit Provider Nurse Practitioner Family
DX: F17.210 Nicotine dependence, cigarettes, uncomplicated (principal)
CPT/HCPCS: G0296

== ENCOUNTER 2023-11-08 10:28 | Outpatient (REF) | payer MEDICARE, SELFPAY ==
--- NOTE | ~2023-11-08 | CT_ITS ---
EXAMINATION: CT CHEST SCREENING CLINICAL INFORMATION: Current smoker at 1 per day, 53 pack years. COMPARISON: None available. TECHNIQUE: Multidetector volumetric CT imaging of the chest is performed without contrast using low dose technique. Additional 2D coronal and sagittal reformatted images and axial 3D maximum intensity projection (MIP) images are generated on the CT workstation. This CT examination was performed using dose optimization techniques as appropriate, variously including the following: *Automated exposure control *Adjustment of mA and/or kV according to patient size (this includes techniques or standardized protocols for targeted exams where dose is matched to indication/reason for exam; i.e. extremities or head) *Use of iterative reconstruction technique DLP: 52 mGy-cm FINDINGS: LUNGS: Emphysematous changes are present most marked in the upper lobes with some subpleural blebs, largest on the left measuring 2.5 cm. A few scattered calcified right pulmonary granulomas are seen. The lungs are otherwise clear with no evidence of inflammation or concerning nodules. MEDIASTINUM: The mediastinum is unremarkable. CORONARY ARTERY CALCIFICATION: Mild. PLEURA: There is no pleural effusion. No pleural mass or thickening. AXILLA: No lymphadenopathy. UPPER ABDOMEN: Unremarkable. OSSEOUS STRUCTURES: Degenerative changes are present throughout the spine with fusion of midthoracic vertebral bodies. No bony destructive lesions are seen. CT/CT lung screening IMPRESSION: No findings concerning for malignancy. ASSESSMENT: Lung-RADS category 1: Negative RECOMMENDATION: Routine annual low-dose CT screening in 12 months.
== END 2023-11-08 10:29 | disposition home or self-care (01) ==
LOC: HO.CT 10:28
PROVIDERS: Visit Provider Nurse Practitioner Family
DX: F17.210 Nicotine dependence, cigarettes, uncomplicated (principal)
CPT/HCPCS: 71271; G0296

== ENCOUNTER 2024-11-23 08:23 | Outpatient (REF) | payer MEDICARE, SELFPAY ==
--- OUTSIDE RECORDS SUMMARY | 2024-11-23 08:40 | XMS_ITS | Encounter Summary ---
Author Organization [employer] Address [address] [facility] [address] [place] [address] Care Team Providers Care Culinary Director Name Role Phone Jackie Nguyen Primary Care Provider [phone] Ale Sanches MD Primary Care Provider + Reason for Visit * Reason Comments Med Refill Encounter Details Date Type Department Care Team ([facility] st Contact Info) Description 12/23/2023 Refill [facility] [address] [place], [place] [phone] Jackie Nguyen FNP [address] [place] [address] Social History Tobacco Use Types Packs/Day Years Used Date Smoking Tobacco: Every Day Cigarettes Smokeless Tobacco: Never Alcohol Use Standard Drinks/Week Comments Not Currently 0 (1 standard drink = 0.6 oz pur e alcohol) Depression Answer Date Recorded Patient Health Questionnaire-9 Score 0 12/23/2023 Patient Health Questionnaire-9 Score 0 12/23/2023 Last PHQ-9: Questionnaire Data Not on file 0 12/23/2023 Housing Stability Answer Date Recorded What is your housing situation today? I have erica rm 12/23/[address] you li ve. Do you have problems with any of the following? None of the above 12/23/2023 Food Insecurity Answer Date Recorded Within the past 12 months, y ou worried that your food would run out before you got money to buy more: Never True 12/23/2023 Within the past 12 months,th e food you bought just didn't last and you didn't have enough money to get more: Never True 09/2023 Transportation Answer Date Recorded In the past 12 months, has l ack of transportation kept you from medical appts, meetings, work or from getting things needed for daily living? No 12/23/2023 Utilities Answer Date Recorded In the past 12 months, has t he electric, gas, oil or water company threatened to shut off services in your home? No 12/23/2023 Depression Answer Date Recorded Patient Health Questionnaire-2 Score 0 12/23/2023 Sex and Gender Information Value Date Recorded Sex Assigned at Male 07/23/2022 10:16 AM EDT Legal Sex Male 10:16 AM EDT Gender Identity Male 07/23/2022 10:16 AM EDT Sexual Orientation Straight 07/23/2022 10 :16 AM EDT documented as of this encounter Plan of Treatment Upcoming Encounters Date Type Department Care Team (Late st Contact Info) Description 12/14/2024 10:30 AM EDT Office Visit [facility] [address] [place] [address] Sawyer Mercer, DMD [address] [place] [address] 02/11/2025 11:45 AM EDT Office Visit [facility] [address] [place] [address] Ale Sanches MD [address] [place] [address] 04/21/2025 10:30 AM EDT Office Visit [facility] [address] [place] [address] Shasta Ortiz, OD [address] [place] [address] documented as of this encounter Visit Diagnoses Not on filedocumented in this encounter Additional Health Concerns Assessment Noted Time PHQ-9 Depression Total Score: 0 12/23/19 10:56 AM EDT documented as of this encounter Care Teams Culinary Director Relationship Specialty Start Date End Date Jackie Nguyen FNP [address] [place] [address] PCP - General Family Medicine 08/15/22 05/25/24 Ale Sanches MD [address] [place] [id number] PCP - General Internal Medicine 05/26/24 documented as of this encounter
--- OUTSIDE RECORDS SUMMARY | 2024-11-23 08:40 | XMS_ITS | Encounter Summary ---
Author Organization [employer] Address [address] [facility] 7[address] [place] [address] Care Team Providers Care Research Laboratory Specialist Name Role Phone Patrick Jackie BRAVO Primary Care Provider [phone] Ale Sanches MD Primary Care Provider + Reason for Visit * Reason Comments Med Refill Encounter Details Date Type Department Care Team (Late st Contact Info) Description 03/27/2024 Refill [facility] [address] [place], [place] [phone] Ale Sanches MD [address] [place] [address] Social History Tobacco Use Types Packs/Day Years [...] Description 12/14/2024 10:30 AM EDT Office Visit [facility] [address] [place] [address] Sawyer Mercer, ANIRUDH [address] [place] [address] 02/11/2025 11:45 AM EDT Office Visit [facility] [address] [place] [address] Ale Sanches MD [address] [place] [address] 04/21/2025 10:30 AM EDT Office Visit [facility] [address] [place] [address] Shasta Ortiz, OD [address] [place] [address] documented as of this encounter Visit Diagnoses Not on filedocumented in this encounter Additional Health Concerns Assessment Noted Time PHQ-9 Depression Total Score: 0 12/23/19 24 10:56 AM EDT documented as of this encounter Care Teams Research Laboratory Specialist Relationship Specialty Start Date End Date Jackie Nguyen FNP [address] [place] [address] PCP - General Family Medicine 08/15/22 05/25/24 Ale Sanches MD [address] [place] [id number] PCP - General Internal Medicine 05/26/24 documented as of this encounter
--- OUTSIDE RECORDS SUMMARY | 2024-11-23 08:41 | XMS_ITS | Encounter Summary ---
Author Organization [employer] Address [address] [facility] 7t [place] [address] Care Team Providers Care Flight Instructor Name Role Phone Ale Sanches MD Primary Care Provider + Reason for Visit * Reason Onset Date Comments Chart prep 11/17/2024 Encounter Details Date Type Department Care Team ([facility] st Contact Info) Description 11/17/2024 Telephone [facility] [address] [place], [place] [phone] Ale Sanches MD [address] [place], [place] [phone] Chart prep Social History Tobacco Use Types Packs/Day Years Used Date Smoking Tobacco: Every Day Cigarettes Passive Smoke Exposure: Current Smokeless Tobacco: Never Alcohol Use Standard Drinks/Week [...] Recorded Patient Health Questionnaire-2 Score 0 12/23/2023 Internet Access Answer Date Recorded Internet Access Q1 Yes 11/06/2024 Internet Access Q2 Not on file 11/06/2024 Sex and Gender Information Value Date Recorded Sex Assigned at Male 07/23/2022 10:16 AM EDT Legal Sex Male 10:16 AM EDT Gender Identity Male 07/23/2022 10:16 AM EDT Sexual Orientation Straight 07/23/2022 10 :16 AM EDT documented as of this encounter Miscellaneous Notes * Telephone Encounter - Mira Almaguer [place] - 11/17/2024 10:39 AM EST Chart Prep Labs: not done Images: done Vaccines due: yes Referrals: pending appt Screenings: up to date Overdue care gaps: Glucose documented in this encounter Plan of Treatment Upcoming Encounters Date Type Department Care Team (Late st Contact Info) Description 12/14/2024 10:30 AM EDT Office Visit [facility] [address] [place] [address] Sawyer Mercer, ANIRUDH [address] [place] [address] 02/11/2025 11:45 AM EDT Office Visit [facility] [address] [place] [address] Ale Sanches MD [address] [place] [address] 04/21/2025 10:30 AM EDT Office Visit [facility] [address] [place] [address] Shasta Ortiz, GER [address] [place] [address] documented as of this encounter Visit Diagnoses Not on filedocumented in this encounter Additional Health Concerns Assessment Noted Time PHQ-9 Depression Total Score: 0 12/23/19 10:56 AM EDT documented as of this encounter Care Teams Flight Instructor Relationship Specialty Start Date End Date Ale Sanches MD [address] [place] [address] PCP - General Internal Medicine 05/26/24 documented as of this encounter
--- OUTSIDE RECORDS SUMMARY | 2024-11-23 08:41 | XMS_ITS | Encounter Summary ---
Author Organization [employer] Address [address] [facility] 7[address] [place] [address] Care Team Providers Care Stave Jointer Name Role Phone Ale Sanches MD Primary Care Provider + Encounter Details Date Type Department Care Team (Late st Contact Info) Description 11/04/2024 3:00 PM EST Office Visit [facility] [address] [place], [place] [phone] Angel, Shasta, OD [address] [place], [place] [phone] Diabetes type 2, no ocular involvement (CMS/HCC) (Primary Dx); Open angle with borderline findings, low risk; Degenerative retinal drusen, right eye; Combined forms of age-related cataract of both eyes; Presbyopia of both eyes Social History Tobacco Use Types Packs/Day Years [...] Description 12/14/2024 10:30 AM EDT Office Visit [facility] [address] [place] [address] Sawyer Mercer, ANIRUDH [address] [place] [address] 02/11/2025 11:45 AM EDT Office Visit [facility] [address] [place] [address] Ale Sanches MD [address] [place] [address] 04/21/2025 10:30 AM EDT Office Visit [facility] [address] [place] [address] Shasta Ortiz, OD [address] [place] [address] Pending Results Name Type Priority Associated Diagnoses Date /Time OCT, Optic Nerve - OU - Both Eyes Ophthalmology Routine Open angle with borderline findings, low risk 11/04/2024 4:15 PM EST documented as of this encounter Visit Diagnoses Diagnosis Diabetes type 2, 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
--- OUTSIDE RECORDS SUMMARY | 2024-11-23 08:41 | XMS_ITS | Clinical Summary ---
Author Organization [employer] Address [address] [place] [address] Care Team Providers Care Furniture Installer Name Role Phone Ale Sanches MD Primary Care Provider + Allergies No known active allergies Medications FreeStyle lancetsIndications :Diabetes mellitus due to underlying condition with hyperosmolarity without coma, unspecified whether custodial insulin use ([facility]) 1 each by Other route 2 times daily. 100 each 3 023 Active glucose blood (FREESTYLE LITE) test stripIndications:D iabetes mellitus due to underlying condition with hyperosmolarity without coma, unspecified whether custodial insulin use (CMS/[facility]) Use 1 strip to skin twice a day as directed 100 each 3 023 Active calcium carbonate (Tums) 500 MG chewable tablet Chew 1 tablet (500 mg) in the morning. 90 tablet 3 024 2024 Active glucose blood (OneTouch Verio) test strip TEST BLOOD SUGAR TWICE DAILY 100 strip 024 Active Lancets (OneTouch Delica Plus [id number]) [facility] USE TO TEST BLOOD SUGAR TWICE DAILY 100 each 024 Active atorvastatin (Lipitor) 40 MG tablet TAKE 1 TABLET BY MOUTH EVERY DAY IN THE MORNING 90 tablet 2 024 Active glipiZIDE XL (Glucotrol XL) 5 MG 24 hr tablet TAKE 1 TABLET BY MOUTH EVERY DAY IN THE MORNING 90 tablet 2 024 Active lisinopril 20 MG tablet TAKE 1 TABLET BY MOUTH EVERY DAY IN THE MORNING 90 tablet 2 024 Active metFORMIN (Glucophage) 1000 MG tablet TAKE 1 TABLET BY MOUTH TWICE DAILY WITH MEALS 180 tablet 2 024 Active Alcohol Swabs (Alcohol Prep) 70 % pads Use four times daily when testing blood sugar 100 each 11 024 Active ammonium lactate (Amlactin) 12 % cream Apply topically if needed for dry skin. 385 g 2 024 2024 Active Diclofenac Sodium (Voltaren Arthritis Pain) 1 % gel BID PRN to affected area 100 g 1 025 Active Diclofenac Sodium (Voltaren Arthritis Pain) 1 % gel BID PRN to affected area 100 g 1 023 2024 Discontinued(R eorder (will not trigger notification to Pharmacy)) lidocaine (Xylocaine) 5 % ointment APPLY TOPICALLY EVERY DAY NEEDED FOR FOR MILD PAIN 35.44 g 1 024 2024 Discontinued(T herapy completed) Active Problems Problem Noted Date Diagnosed Date Overweight 11/20/2024 Assessment & Plan (11/20/2024 10:51 AM EST): Discussed re weight reduction options including exercise, life style modifications, diet. Recommended to decrease soda and sugary beverage consumption, increase protein intake with meals (at least 1 portion of protein with each meal) to assist with satiety, increase dietary fiber Recommended at least 150 min/week of moderate intensity exercise. Trigger middle finger of left hand 11/20/2024 Assessment & Plan (11/20/2024 10:54 AM EST): He declined referral to OT, I advised him to use Diclofenac gel PRN and re consult steroid injection PRN. Right tennis elbow 03/19/2024 Assessment & Plan (03/19/2024 5:29 PM EDT): Advised to use tylenol prn Immobilization with an nataliya wrap on 30 degrees flexion Referred to OT Skin tumor 03/19/2024 Assessment & Plan (03/19/2024 5:31 PM EDT): It seems to be a rapidly growing actinic keratoses vs squamous cell skin Ca. Refer to derm for resection Rx triamcinolone cream around the area for pruritus to prevent ulceration. Diverticular disease of colon 05/06/2023 Diverticulitis 05/06/2023 Screening for malignant neoplasm of colon 2022 History of adenomatous polyp of colon 05/06/2023 Hypertension 10/16/2022 Assessment & Plan (08/07/2024 10:10 AM EST): Controlled. Compliant w/meds Continue lisinopril. Counseled re low salt diet/increase moderate physical activity. Check home BP BIW and prn CP/BOWDEN/GUEVARA Non smoking patient. Follow up in 6 months. Grade I hemorrhoids 07/11/2017 Chronic low back pain 01/17/2016 Inguinal hernia recurrent unilateral 02/24/2015 Tubular adenoma 07/13/2013 Assessment & Plan (08/07/2024 10:17 AM EST): In 2022, follow up with Dr. Corado in 2027. Tobacco dependence syndrome 06/04/2012 Diabetes mellitus 02/15/2012 Assessment & Plan (11/20/2024 10:53 AM EST): Controlled. Continue on Metformin 1000 mg + Glipizide. Counseled re more frequent low calorie/carb meals. Check fgstk once daily Encouraged physical activity as tolerated. FU in 3 months with labs. Pt declined influenza and Covid vaccine today. Ophthalmology evaluation is UTD as on 09/2024. I gave him information regarding dental clinic so he can schedule an appointment. Assessment & Plan (08/07/2024 10:09 AM EST): Controlled. A1c is at goal. Continue on Metformin 1000 mg + Glipizide. Counseled re more frequent low calorie/carb meals. Check fgstk once daily Encouraged physical activity as tolerated. FU in 3 months with labs. Pt declined influenza and Covid vaccine today. Will request eye clinic to call him for a follow up appointment this year. Dermatophytosis 02/15/2012 Hypertensive left ventricular hypertrophy 2011 Obesity 02/15/2012 Obstructive sleep apnea syndrome 02/15/2012 Assessment & Plan (11/20/2024 10:58 AM EST): Not using CPAP, not interested in repeating sleep study at this time. We discussed the risk of untreated sleep apnea including cardiovascular and neurology complications. Advised weight reduction. FU on next appointment. Assessment & Plan (08/07/2024 10:15 AM EST): Not using CPAP for a few years now. Will address new sleep study in future visit, understands importance of CPAP machine every night. Pure hypercholesterolemia 02/15/2012 Resolved Problems Problem Noted Date Diagnosed Date Resolved Date Depressive disorder 03/17/2012 08/07/20 24 Encounters Date Type Department Care Team Description 11/20/2024 10:30 AM EST Office Visit [facility] [address] [place] [address] Ale Sanches MD Trigger middle finger of left hand (Primary Dx); Type 2 diabetes mellitus without complication, without long-term current use of insulin (CMS/HCC); Overweight; Dietary counseling; Exercise counseling; Obstructive sleep apnea syndrome 11/20/2024 Travel 11/17/2024 Telephone [facility] [address] [place] [address] Ale Sanches MD Chart prep 11/06/2024 Patient Outreach [facility] [address] [place] [address] Ale Sanches MD Pre-visit Planning (SDOH screening negative and tobacco screening positive) 11/04/2024 3:00 PM EST Office Visit [facility] [address] [place], [place] [phone] Angel, Shasta, OD Diabetes type 2, no ocular involvement (CMS/HCC) (Primary Dx); Open angle with borderline findings, low risk; Degenerative retinal drusen, right eye; Combined forms of age-related cataract of both eyes; Presbyopia of both eyes 11/04/2024 Travel 09/24/2024 Telephone [facility] [address] [place], [place] [phone] Ale Sanches MD November recall from Last 3 Months Immunizations Name Administration Dates Next Due Influenza High-dose Quadriva lent Preservative Free 08/26/2023,08/11/2020 Influenza injectable quadriv alent IIV4 with preservative 06/26/2016 Influenza injectable quadriv alent preservative free 06/25/2019,09/09/2018,07/15/2017 Influenza, IIV3, injectable 08/14/2022, 9 Influenza, Split (incl. maria e fied surface antigen) 10/13/2013,06/04/2012 Moderna Covid-19 Vaccine 12+ 12/08/2020,11/10/19 21 Pfizer Covid-19 Vaccine 12+ Bivalent 08/23/2022 Pneumococcal Conjugate PCV 13 07/15/2017 Pneumococcal Polysaccharide PPSV23 08/11/2020, TD (adult), 2 Lf tetanus tox oid, preservative free, adsorbed 08/07/2002 Tdap 05/08/2023,10/07/2012 Zoster, Recombinant 05/14/2023 Zoster, live 11/19/2014 Social History Tobacco Use Types Packs/Day Years Used Date Smoking Tobacco: Every Day Cigarettes Passive Smoke Exposure: Current Smokeless Tobacco: Never Tobacco Cessation:Ready to Q uit: Not Asked; Counseling Given: Not Answered Alcohol Use Standard Drinks/Week Comments Not Currently [...] Orientation Straight 07/23/2022 10 :16 AM EDT Last Filed Vital Signs Vital Sign Reading Time Taken Comments Blood Pressure 140/80 11/20/2024 10:24 AM EST Pulse 67 11/20/2024 10:24 AM EST Temperature 35.5 ??C (95.9 ??F) 11/20/2024 10:[address] Respiratory Rate 20 08/07/2024 9:08 AM EST Oxygen Saturation 100% 11/20/2024 10:24 AM EST Inhaled Oxygen Concentration - - Weight 76 kg (167 lb 8 oz) 11/20/2024 10:[address] Height 165.1 cm (5' 5 ) 11/20/2024 10:24 AM EST Body Mass Index 27.87 11/20/2024 10:24 AM EST Plan of Treatment Upcoming Encounters Date Type Department Care Team (Late st Contact Info) Description 12/14/2024 10:30 AM EDT Office Visit [facility] [address] [place] [address] Sawyer Mercer, ANIRUDH [address] [place] [address] 02/11/2025 11:45 AM EDT Office Visit [facility] [address] [place] [address] Ale Sanches MD [address] [place] [address] 04/21/2025 10:30 AM EDT Office Visit [facility] [address] [place] [address] Shasta Ortiz, OD [address] [place] [address] Health Maintenance Due Date Last Done Comments CT Colonography 1952 FIT DNA/Cologuard 1952 FIT 1952 FOBT 1952 Sigmoidoscopy 1952 Derm Melanoma Skin Check 1952 Alcohol/Substance Use Screening 1964 Hepatitis A Vaccines (1 of 2 - Risk 2-dose series) 1971 Zoster Vaccines (3 of 3) 07/09/2023 05/14/2023, 10/25 COVID-19 Vaccine ( season) 2024 08/23/2022, 12/08/2020, 11/10/2020 Influenza Vaccine (#1) 2024 , 08/14/2022, 08/11/2020, Additional history exists Diabetes: Urine Protein Screening 08/28/2024 08/28/2023, 08/23/2022, 07/27/2020 Lipid Panel 08/28/2024 08/28/2023, 08/23/2022 Depression Screening 12/22/2024 12/23/2023, 12/23/19 24 Diabetes: Hemoglobin A1C 02/04/2025 024, 12/23/2023, 05/08/2023, Additional history exists Diabetes: Foot Exam 08/07/2025 08/07/2024, 08/07/2024, 08/07/2024, Additional history exists SDOH Screening 11/06/2025 11/06/2024 Tobacco Screening 11/20/2025 11/20/2024 Colonoscopy 03/08/2026 03/08/2023, 03/04/2020 Colorectal Cancer Screening 03/08/2026 Eye Exam 11/04/2026 11/04/2024, 10/24, 11/04/2024, Additional history exists RSV Patients and Patients Aged 60 years or older (1 - 1-dose 75+ series) 2027 DTaP/Tdap/Td Vaccines (3 - Td or Tdap) 05/08/2033 05/08/2023, 10/07/2012, 08/07/2002 Pneumococcal Vaccine: 50+ Years Completed 08/11/2020, 07/15/2017, 05/24/2010 Hepatitis C Screening Completed 08/28/2023 HIB Vaccines Aged Out No longer eligi ble based on patient's age to complete this topic HPV Vaccines Aged Out No longer eligi ble based on patient's age to complete this topic Hepatitis B Vaccines Aged Out No long er eligible based on patient's age to complete this topic IPV Vaccines Aged Out No longer eligi ble based on patient's age to complete this topic Meningococcal Vaccine Aged Out No luz campbell eligible based on patient's age to complete this topic RSV under 20 months Aged Out No longe r eligible based on patient's age to complete this topic Rotavirus Vaccines Aged Out No longer eligible based on patient's age to complete this topic Procedures Procedure Name Priority Date/Time Associated Diagnosis Comments POCT GLUCOSE Routine 11/20/2024 10:25 AM EST Type 2 diabetes mellitus without complication, without long-term current use of insulin (CMS/HCC) POCT GLYCATED HEMOGLOBIN, TOTAL Routine 08/07/2024 9:17 AM EST Other specified diabetes mellitus with other specified complication, unspecified whether intermission coordinator insulin use (CMS/HCC) HEPATITIS C AB W/REFL TO HCV RNA, QN, PCR Routine 08/28/2023 8:04 AM EST Type 2 diabetes mellitus without complication, without long-term current use of insulin (CMS/HCC) ALBUMIN, RANDOM URINE W/CREATININE Routine 08/28/2023 8:04 AM EST Type 2 diabetes mellitus without complication, without long-term current use of insulin (CMS/HCC) LIPID PANEL, STANDARD Routine 08/28/2023 8:04 AM EST Type 2 diabetes mellitus without complication, without long-term current use of insulin (CMS/HCC) HM COLONOSCOPY Routine 03/08/2023 11:43 AM EDT from Last 3 Months or Most Recently Relevant to Health Maintenance Results * POCT Glucose (11/20/2024 10:25 AM EST) Glucose Blood, POC 152 60 - 200 mg/dL QC Media Lot # [id number] Lot# Expiration Date [id number] Blood Capillary blood specimen / Unknown 11/20/2024 10:25 AM EST Ale Sanches MD POINT OF CARE TEST ENTER /EDIT ORDERABLES Final Result * (ABNORMAL) POCT HGB A1C (08/07/2024 9:17 AM EST) Pathologist [facility] Hemoglobin A1C 6.8(A) 4.0 - 6.0 % Blood 08/07/2024 9:17 AM EST Ale Sanches MD POINT OF CARE TEST ENTER /EDIT ORDERABLES Final Result * Albumin, Random Urine W/Creatinine (08/28/2023 8:04 AM EST) Pathologist [facility] Creatinine, Urine 141.46 mg/dL [facility] Microalbumin Urine 6.0 mg/L [facility] Microalbum Creatinine Ratio Ur 4.2 <30 ug/mg cr [facility] Comment:Albumin/Creatinine R atio Reference Ranges: Normal: < 30 ug/mg creatinine Microalbuminuria: 30 - 300 ug/mg creatinineClinical Albuminuria: > 300 ug/mg creatinine Urine (Urine, Random) 08/28/2023 8:04 AM EST 08/28/2023 11:06 AM EST Jackie Nguyen INTERNAL CONTROL CONSULTANT LAB URINE ORDERABLES Final Resu lt [facility] [address] [place] [address] [phone] * Hepatitis C Antibody with Reflex to HCV, RNA, Quantitative, Real-Time PCR (08/28/2023 8:04 AM EST) Pathologist [facility] Hepatitis C Antibody Nonreactive Nonreactive [facility] Comment:Antibodies to HCV no t detected; does not exclude early acuteHCV infection. Blood Venous blood specimen / Unknown 08/28/2023 8:04 AM EST 08/28/2023 11:09 AM EST [facility] Final Resu lt Performing Organization Address [facility] Co de Phone Number [facility] [address] [place] [address] [phone] * (ABNORMAL) Lipid Panel, Standard (08/28/2023 8:04 AM EST) Triglycerides 85 <150 mg/dL [facility] Comment:Desirable Triglyceri de: less than 150 mg/dLBorderline High Triglyceride 150-199 mg/dLHigh Triglyceride: 200-499 mg/dLVery High Triglyceride: greater than or equal to 5OO mg/dL Cholesterol 84 <200 mg/dL [facility] Comment:Desirable Cholestero l: less than 200 mg/dLBorderline High Cholesterol: 200-239 mg/dLHigh Cholesterol: greater than 239 mg/dL LDL Cholesterol Calculated 41 <100 mg/dL [facility] Comment:Desirable LDL: less than 100 mg/dLNear Optimal/Above Optimal LDL: 110- 129 mg/dLBorderline High LDL: 130-159 mg/dLHigh LDL: 160-189 mg/dLVery High LDL: greater than or equal to 190 mg/dL HDL Cholesterol 26(L) >40 mg/dL [facility] Comment:Desirable HDL: great er than 40 mg/dL Note: This HDL assay may give artificially low results in patients with liver disease. Blood Venous blood specimen / Unknown 08/28/2023 8:04 AM EST 08/28/2023 11:09 AM EST Jackietomas Nguyen [facility] LAB BLOOD ORDERABLES Final Resu lt Performing Organization Address [facility]/ZIP Co de Phone Number [facility] [address] [place] [address] [phone] * Hm Colonoscopy (03/08/2023 11:43 AM EDT) Colonoscopy Normal Normal Comment:Tubular adenoma Dr Gonzalez shahid us Historical Provider HEALTH MAINTENANCE Edited Result - Final from Last 3 Months or Most Recently Relevant to Health Maintenance Insurance [facility] MEDICARE ADVANTAGE DENTAL - [facility] PPO Care Teams Furniture Installer Relationship Specialty Start Date End Date Ale Sanches MD [address] [place] [id number] PCP - General Internal Medicine 05/26/24
--- OUTSIDE RECORDS SUMMARY | 2024-11-23 08:41 | XMS_ITS | Encounter Summary ---
Author Organization [employer] Address [address] [facility] [address] [place] [address] Care Team Providers Care Speaking Unit Assembler Name Role Phone Jackie Nguyen Primary Care Provider [phone] Ale Sanches MD Primary Care Provider + Encounter Details Date Type Department Care Team (Late st Contact Info) Description 05/14/2023 Orders Only [facility] [address] [place], [place] [phone] Jackie Nguyen FNP [address] [place] [address] Social History Tobacco Use Types Packs/Day Years Used Date Smoking Tobacco: Every Day Cigarettes Smokeless Tobacco: Never Alcohol Use Standard Drinks/Week Comments Not Currently 0 (1 standard drink = 0.6 oz pur e alcohol) Depression Answer Date Recorded Patient Health Questionnaire-9 Score 0 10/31/2022 Depression Answer Date Recorded Patient Health Questionnaire-2 Score 0 10/31/2022 Sex and Gender Information Value Date Recorded Sex Assigned at Male 07/23/2022 10:16 AM EDT Legal Sex Male 10:16 AM EDT Gender Identity Male 07/23/2022 10:16 AM EDT Sexual Orientation Straight 07/23/2022 10 :16 AM EDT documented as of this encounter Plan of Treatment Upcoming Encounters Date Type Department Care Team (Late st Contact Info) Description 12/14/2024 10:30 AM EDT Office Visit [facility] [address] [place], [place] [phone] Sawyer Mercer DMD [address] [place] [address] 02/11/2025 11:45 AM EDT Office Visit [facility] [address] [place] [address] Ale Sanches MD [address] [place] [address] 04/21/2025 10:30 AM EDT Office Visit [facility] [address] [place] [address] Angel, Shasta, OD [address] [place] [address] documented as of this encounter Visit Diagnoses Not on filedocumented in this encounter Additional Health Concerns Assessment Noted Time PHQ-9 Depression Total Score: 0 10/31/19 9:56 AM EST documented as of this encounter Care Teams Speaking Unit Assembler Relationship Specialty Start Date End Date Jackie Nguyen FNP [address] [place] [phone] PCP - General Family Medicine 08/15/22 05/25/24 Ale Sanches MD [address] [place] [phone] PCP - General Internal Medicine 05/26/24 documented as of this encounter
--- OUTSIDE RECORDS SUMMARY | 2024-11-23 08:41 | XMS_ITS | Encounter Summary ---
Author Organization [employer] Address [address] [facility] 7t [place] [address] Care Team Providers Care Cytology Technologist Name Role Phone Ale Sanches MD Primary Care Provider + Encounter Details Date Type Department Care Team (Latest Contact Info) Description 11/04/2024 Travel Social History Tobacco Use Types Packs/Day Years [...] Description 12/14/2024 10:30 AM EDT Office Visit [facility] [address] [place] [address] Sawyer Mercer, DMD [address] [place] [address] 02/11/2025 11:45 AM EDT Office Visit [facility] [address] [place] [address] Ale Sanches MD [address] [place] [address] 04/21/2025 10:30 AM EDT Office Visit [facility] [address] [place] [address] AngelShasta owusu, OD [address] [place] [address] documented as of this encounter Visit Diagnoses Not on filedocumented in this encounter Additional Health Concerns Assessment Noted Time PHQ-9 Depression Total Score: 0 12/23/19 10:56 AM EDT documented as of this encounter Care Teams Cytology Technologist Relationship Specialty Start Date End Date Ale Sanches MD [address] [place] [address] PCP - General Internal Medicine 05/26/24 documented as of this encounter
--- OUTSIDE RECORDS SUMMARY | 2024-11-23 08:41 | XMS_ITS | Encounter Summary ---
Author Organization [facility] Address [address] [facility] [address] [place] [address] Care Team Providers Care Senior C Software Developer Name Role Phone Jackie Nguyen Primary Care Provider [phone] Ale Sanches MD Primary Care Provider + Encounter Details Date Type Department Care Team (Late st Contact Info) Description 01/22/2023 Orders Only [facility] [address] [place] [address] Jackie Nguyen FNP [address] [place] [address] Type 2 diabetes mellitus with hyperosmolarity without coma, without long-term current use of insulin ([facility]) (Primary Dx) Social History Tobacco Use Types Packs/Day Years [...] Description 12/14/2024 10:30 AM EDT Office Visit [facility] [address] [place] [address] Sawyer Mercer, DMD [address] [place] [address] 02/11/2025 11:45 AM EDT Office Visit [facility] [address] [place] [address] Ale Sanches MD [address] [place] [address] 04/21/2025 10:30 AM EDT Office Visit [facility] [address] [place] [address] Shasta Ortiz, OD [address] [place] [address] documented as of this encounter Visit Diagnoses Diagnosis Type 2 diabetes mellitus with hyperosmolarity without coma, without long-term current use of insulin ([facility])- Primary documented in this encounter Additional Health Concerns Assessment Noted Time PHQ-9 Depression Total Score: 0 10/31/19 9:56 AM EST documented as of this encounter Care Teams Senior C Software Developer Relationship Specialty Start Date End Date Jackie Nguyen FNP [address] [place] [address] PCP - General Family Medicine 08/15/22 05/25/24 Ale Sanches MD [address] [place] [address] PCP - General Internal Medicine 05/26/24 documented as of this encounter
--- OUTSIDE RECORDS SUMMARY | 2024-11-23 08:41 | XMS_ITS | Patient Health Record ---
Author Organization [facility] - [facility] Address [address] [place] [address] Care Team Providers Care Event Marketing Assistant Name Role Phone Wilbur Barrientos Unavailable [phone] Allergies No Known Allergies Reason For Referral No Information Medications Medication SIG (Take, Route, Frequency, Duration) Notes Start Date End Date Status Medrol Dosepak 4 mg as directed 06/06/2021 Not-Taking cyclobenzaprine 10 mg 1 tab(s) orally 3 times a day for 10 days 06/06/2021 Not-Taking Problems Problem Type SNOMED Code ICD Code Onset Dates Problem Status W/U Status Risk Notes Problem [id number] Sciatica, left side (M54.32) Active confirmed Plan Of Treatment No Information Insurance Providers Payer Name Payer Address Payer Phone Subscriber Number Group Number Insured Name Patient Relationship to Insured Coverage Start Date Coverage End Date [employer] HMO [address] [address] [place] [address] [id number] Teofilo Neal Self - patient is the insured Medicare [address] [address] [place] [address] [id number] Teofilo Neal Self - patient is the insured Medical (General) History Medical History History ICD Code High Blood Pressure High Cholesterol Surgical History Surgery Date(Month/Year)
--- OUTSIDE RECORDS SUMMARY | 2024-11-23 08:41 | XMS_ITS | Patient Health Record ---
Author Organization [facility] Address [address] [place] [id number] Care Team Providers Care Pay Per Click Strategist Name Role Phone Jackie Raygoza Primary Care Provider Prakash Herrera Unavailable [phone] ALLERGIES No Known Allergies REASON FOR REFERRAL No Information MEDICATIONS Medication SIG (Take, Route, Frequency, Duration) Notes Start Date End Date Status FreeStyle Lancets - as directed Active FreeStyle InsuLinx Test - as directed In Vitro Active glipiZIDE ER 5 MG 1 tablet with food Orally Once a day for 30 day(s) Active Omeprazole 20 MG 1 capsule 30 minutes before morning meal Orally Once a day for 30 day(s) Just PRN Active Lipitor 40 MG 1 tablet Orally Once a day Active Voltaren 1 % as directed Externally Active metFORMIN HCl 500 MG 1 tablet with meals Orally Once a day with the evening meal Active Pepcid 20 MG 1 tablet Orally Twic e a day Not daily Active Aricept 10 MG 1 tablet at bedtime Orally Once a day for 30 day(s) Active Lisinopril 20 MG 1 tablet Orally Once a day Active Wellbutrin SR 200 MG as directed Orally Active IMMUNIZATIONS Vaccine Route Administration Date Status Comme nts Influenza Unknown 06/23/2019 Administered Influenza Unknown 08/14/2022 Administered SOCIAL HISTORY Sex Assigned At : Social History Observation Description Sex Assigned At Unknown PROBLEMS Problem Type ICD Code Onset Dates Problem Status W/U Status Risk SNOMED Code Notes Problem Encounter for screening for malignant neoplasm of colon (Z12.11) Active confirmed 829412980 Problem Diverticulosis of large intestine without perforation or abscess without bleeding (K57.30) Active confirmed Diverticul ar disease of colon (201739855) Problem Diverticulitis (K57.92) Active confirmed 149367985 Problem Hx of adenomatous colonic polyps (Z86.010) Active confirmed 885327258 Problem Pre-procedural examination (Z01.818) Active confirmed [id number] PLAN OF TREATMENT Pending Test Test Name Order Date Pathology 03/08/2023 Future Test Test Name Order Date COLONOSCOPY 07/13/2014 COLONOSCOPY 12/10/2019 COLONOSCOPY 12/27/2022 Insurance Providers Payer Name Payer Address Payer Phone Subscriber Number Group Number Insured Name Patient Relationship to Insured Coverage Start Date Coverage End Date [employer] Medicare Advantage Plan [address] [address] [place] [phone] [id number] RYLEY REAGAN Self - patient is the insured MEDICARE [facility] [address] [place] [address] [id number] RYLEY REAGAN Self - patient is the insured MEDICAL (GENERAL) HISTORY Medical History History ICD Code Tubular adenomas removed in 2002 and in 02/2009; colonoscopy in 09/2014 with hyperplastic polyps removed HTN Hypercholesterolemia Back pain/spinal stenosis--has had epidu ral injections Depression NIDDM Kidney stones Sleep apnea--not using CPAP now-it bothe red his sleeping Denies [place],CVA,Lung disease,renal disease Colonoscopy in February of 2020- -Limited prep but with 2 polyps removed. One was a tubular adenoma and the other was not recovered for pathology. Uncomplicated diverticulitis of the left colon in September of 2022 treated with outpatient antibiotics Surgical History Surgery Date(Month/Year) Hemorrhoidectomy Inguinal hernia
--- OUTSIDE RECORDS SUMMARY | 2024-11-23 08:41 | XMS_ITS | Encounter Summary ---
Author Organization [employer] Address [address] [facility] 7t [place] [address] Care Team Providers Care Clerk Stenographer Name Role Phone Ale Sanches MD Primary Care Provider + Encounter Details Date Type Department Care Team (Latest Contact Info) Description 11/20/2024 Travel Social History Tobacco Use Types Packs/Day [...] 12/14/2024 10:30 AM EDT Office Visit [facility] ADULT DENTAL [address] [place] [address] Sawyer Mercer, DMD [address] [place] [address] 02/11/2025 11:45 AM EDT Office Visit [facility] MEDICINE [address] [place] [address] Ale Sanches MD [address] [place] [address] 04/21/2025 10:30 AM EDT Office Visit [facility] OPTOMETRY [address] [place] [address] Angel, Shasta, OD [address] [place] [address] documented as of this encounter Visit Diagnoses Not on filedocumented in this encounter Additional Health Concerns Assessment Noted Time PHQ-9 Depression Total Score: 0 12/23/19 10:56 AM EDT documented as of this encounter Care Teams Clerk Stenographer Relationship Specialty Start Date End Date Ale Sanches MD [address] [place] [address] PCP - General Internal Medicine 05/26/24 documented as of this encounter
--- OUTSIDE RECORDS SUMMARY | 2024-11-23 08:41 | XMS_ITS | Encounter Summary ---
Author Organization [employer] Address [address] [facility] 7t [place] [address] Care Team Providers Care Crm System Administrator Name Role Phone Ale Sanches MD Primary Care Provider + Reason for Visit * Reason Comments Pre-visit Planning SDOH screening negat orlin and tobacco screening positive Encounter Details Date Type Department Care Team ([facility] st Contact Info) Description 11/06/2024 Patient Outreach [facility] MEDICINE [address] [place], [place] [phone] Ale Sanches MD [address] [place], [place] [phone] Pre-visit Planning (SDOH screening negative and tobacco screening positive) Social History Tobacco Use Types Packs/Day Years [...] AM EDT documented as of this encounter Progress Notes * Sherly Galindo - 11/06/2024 10:36 AM EST CC Sherly placed successful outbound call to patient for pre-visit planning. Patient name and confirmed. Patient confirms appt date and time, and has transportation. Biggest concern for appointment at this time is finger pain unable to use hand Patient advised to bring to appointment a photo idand insurance card. Appropriate screenings completed in anticipation of appointment. documented in this encounter Plan of Treatment Upcoming Encounters Date Type Department Care Team (Late st Contact Info) Description 12/14/2024 10:30 AM EDT Office Visit [facility] ADULT DENTAL [address] [place] [address] Sawyer Mercer, ANIRUDH [address] [place] [address] 02/11/2025 11:45 AM EDT Office Visit [facility] MEDICINE [address] [place] [address] Ale Sanches MD [address] [place] [address] 04/21/2025 10:30 AM EDT Office Visit [facility] OPTOMETRY [address] [place] [address] Shasta Ortiz, GER [address] [place] [address] documented as of this encounter Visit Diagnoses Not on filedocumented in this encounter Additional Health Concerns Assessment Noted Time PHQ-9 Depression Total Score: 0 12/23/19 10:56 AM EDT documented as of this encounter Care Teams Crm System Administrator Relationship Specialty Start Date End Date Ale Sanches MD [address] [place] [address] PCP - General Internal Medicine 05/26/24 documented as of this encounter
--- OUTSIDE RECORDS SUMMARY | 2024-11-23 08:41 | XMS_ITS | Encounter Summary ---
Author Organization [facility] Address [address] [facility] 7[address] [place] [address] Care Team Providers Care Discharge Door Operator Name Role Phone Jackie Nguyen Primary Care Provider [phone] Ale Sanches MD Primary Care Provider + Encounter Details Date Type Department Care Team (Late st Contact Info) Description 03/06/2023 Abstract [facility] [address] [place], [place] [phone] Jackie Nguyen FNP [address] [place] [address] Social History Tobacco Use Types Packs/Day Years [...] Orientation Straight 07/23/2022 10 :16 AM EDT COVID-19 Exposure Response Date Recorded In the last 10 days, have yo u been in contact with someone who was confirmed or suspected to have Coronavirus/COVID-19? No / Unsure 02/20/2023 10:08 AM EDT documented as of this encounter Plan of Treatment Upcoming Encounters Date Type Department Care Team (Late st Contact Info) Description 12/14/2024 10:30 AM EDT Office Visit [facility] ADULT D[facility]AL [address] [place] [address] Sawyer Mercer, DMD [address] [place] [address] 02/11/2025 11:45 AM EDT Office Visit [facility] MED[facility] [address] [place] [address] Ale Sanches MD [address] [place] [address] 04/21/2025 10:30 AM EDT Office Visit [facility] OPTOM[facility]RY [address] [place] [address] Shasta Ortiz, OD [address] [place] [address] documented as of this encounter Procedures Procedure Name Priority Date/Time Associated Diagnosis Comments COLONOSCOPY Routine 03/04/2020 2:04 PM EDT documented in this encounter Results * Hm Colonoscopy (03/04/2020 2:04 PM EDT) Colonoscopy Normal Normal Narrative Mounika Garcia - 03/04/2020 2:04 PM EDT Recommended 3 year follow up us Historical Provider [facility] Edited Result - Final documented in this encounter Visit Diagnoses Not on filedocumented in this encounter Additional Health Concerns Assessment Noted Time PHQ-9 Depression Total Score: 0 10/31/19 23 9:56 AM EST documented as of this encounter Care Teams Discharge Door Operator Relationship Specialty Start Date End Date Jackie Nguyen FNP [address] [place] [address] PCP - General Family Medicine 08/15/22 05/25/24 Ale Sanches MD [address] [place] [address] PCP - General Internal Medicine 05/26/24 documented as of this encounter
--- OUTSIDE RECORDS SUMMARY | 2024-11-23 08:41 | XMS_ITS | Encounter Summary ---
Author Organization [employer] Address [address] [facility] [address] [place] [address] Care Team Providers Care [employer] Senior Officer Name Role Phone Ale Sanches MD Primary Care Provider + Reason for Visit * Reason Comments Diabetes Encounter Details Date Type Department Care Team ([facility] st Contact Info) Description 11/20/2024 10:30 AM EST Office Visit [facility] MEDICINE [address] [place], [place] [phone] Ale Sanches MD [address] [place], [place] [phone] Trigger middle finger of left hand (Primary Dx); Type 2 diabetes mellitus without complication, without long-term current use of insulin ([facility]); Overweight; Dietary counseling; Exercise counseling; Obstructive sleep apnea syndrome Social History Tobacco Use Types Packs/Day Years [...] AM EDT documented as of this encounter Last Filed Vital Signs Vital Sign Reading Time Taken Comments Blood Pressure 140/80 11/20/2024 10:24 AM EST Pulse 67 11/20/2024 10:24 AM EST Temperature 35.5 ??C (95.9 ??F) 11/20/2024 10:[address] Respiratory Rate - - Oxygen Saturation 100% 11/20/2024 10:24 AM EST Inhaled Oxygen Concentration - - Weight 76 kg (167 lb 8 oz) 11/20/2024 10:[address] Height 165.1 cm (5' 5 ) 11/20/2024 10:24 AM EST Body Mass Index 27.87 11/20/2024 10:24 AM EST documented in this encounter Progress Notes * Ale Sanches MD - 11/20/2024 10:30 AM EST SUBJECTIVE: Teofilo Neal is a 74 y.o. year old male who presents for follow up DM/HTN/Labs. Denies recent illness, injury, or hospitalization. Patient did not have labs done prior to consult. BS at home 102. The highest FBS 90-100. At night highest BS 150's. He is compliant with DM medications. Denies nausea, vomiting and is feeling well. Eye exam up to date on 09/2024. He is compliant with blood pressure medications and is feeling well. He has not used the CPAP in a long time and does feel the need for it, he sleeps well. Acute Concerns: He is missing dental pieces, he has 4 maxillary teeth on top and one of them is lose. This makes itdifficult for him to eat. Patient complains of stiffening and cramps on pointer and middle fingers on left hand specifically in the mornings. Social History Social History Narrative Not on file Patient Active Problem List Diagnosis Hypertension Diabetes mellitus (CMS/HCC) Chronic low back pain Dermatophytosis Diverticular disease of colon Diverticulitis Screening for malignant neoplasm of colon Grade I hemorrhoids History of adenomatous polyp of colon Hypertensive left ventricular hypertrophy Inguinal hernia recurrent unilateral Obesity Obstructive sleep apnea syndrome Pure hypercholesterolemia Tobacco dependence syndrome Tubular adenoma Right tennis elbow Skin tumor Overweight Trigger middle finger of left hand No family history on file. Review of Systems Constitutional: Negative for chills, fatigue and fever. HENT: Positive for dental problem. Negative for congestion, ear pain, nosebleeds, rhinorrhea, sinuspressure, sore throat and trouble swallowing. Eyes: Negative for pain and discharge. Respiratory: Negative for cough, chest tightness and shortness of breath. Cardiovascular: Negative for chest pain, palpitations and leg swelling. Gastrointestinal: Negative for blood in stool, constipation, diarrhea and nausea. Endocrine: Negative for polydipsia and polyuria. Genitourinary: Negative for difficulty urinating, frequency and genital sores. Musculoskeletal: Positive for arthralgias and myalgias. Negative for back pain and neck pain. Skin: Negative for rash. Allergic/Immunologic: Negative for environmental allergies. Neurological: Negative for dizziness, seizures, weakness, light-headedness and headaches. Hematological: Negative for adenopathy. Psychiatric/Behavioral: Negative for agitation, behavioral problems, self-injury and suicidal ideas. OBJECTIVE: Vitals: 11/20/24 1024 BP: (!) 140/80 Pulse: 67 Temp: 95.9 ??F (35.5 ??C) SpO2: 100% Physical Exam Constitutional: Appearance: Normal appearance. HENT: Right Ear: Tympanic membrane and ear canal normal. Left Ear: Tympanic membrane and ear canal normal. Mouth/Throat: Mouth: Mucous membranes are moist. Dentition: No dental tenderness, gingival swelling or dental abscesses. Pharynx: No oropharyngeal exudate or posterior oropharyngeal erythema. Eyes: Pupils: Pupils are equal, round, and reactive to light. Cardiovascular: Rate and Rhythm: Normal rate and regular rhythm. Heart sounds: No murmur heard. Pulmonary: Breath sounds: Normal breath sounds. No wheezing. Abdominal: General: Bowel sounds are normal. Palpations: Abdomen is soft. Tenderness: There is no abdominal tenderness. Musculoskeletal: General: Normal range of motion. Left hand: Tenderness (on the base of 2nd and 3rd digits.) present. Cervical back: Normal range of motion. No tenderness. Skin: General: Skin is warm. Neurological: General: No focal deficit present. Mental Status: He is alert and oriented to person, place, and time. Psychiatric: Mood and Affect: Mood normal. Problem List Items Addressed This Visit Diabetes mellitus (CMS/HCC) Controlled. Continue on Metformin 1000 mg + Glipizide. Counseled re more frequent low calorie/carb meals. Check fgstk once daily Encouraged physical activity as tolerated. FU in 3 months with labs. Pt declined influenza and Covid vaccine today. Ophthalmology evaluation is UTD as on 09/2024. I gave him information regarding dental clinic so he can schedule an appointment. Relevant Orders POCT Glucose (Completed) Overweight Discussed re weight reduction options including exercise, life style modifications, diet. Recommended to decrease soda and sugary beverage consumption, increase protein intake with meals (at least 1 portion of protein with each meal) to assist with satiety, increase dietary fiber Recommended at least 150 min/week of moderate intensity exercise. Trigger middle finger of left hand - Primary He declined referral to OT, I advised him to use Diclofenac gel PRN and re consult steroid injection PRN. Obstructive sleep apnea syndrome Not using CPAP, not interested in repeating sleep study at this time. We discussed the risk of untreated sleep apnea including cardiovascular and neurology complications. Advised weight reduction. FU on next appointment. Other Visit Diagnoses Dietary counseling Exercise counseling Follow Up: Current Outpatient Medications on File Prior to Visit Medication Sig Dispense Refill Alcohol Swabs (Alcohol Prep) 70 % pads Use four times daily when testing blood sugar 100 each 11 ammonium lactate (Amlactin) 12 % cream Apply topically if needed for dry skin. 385 g 2 atorvastatin (Lipitor) 40 MG tablet TAKE 1 TABLET BY MOUTH EVERY DAY IN THE MORNING 90 tablet 2 calcium carbonate (Tums) 500 MG chewable tablet Chew 1 tablet (500 mg) in the morning. 90 tablet 3 FreeStyle lancets 1 each by Other route 2 times daily. 100 each 3 glipiZIDE XL (Glucotrol XL) 5 MG 24 hr tablet TAKE 1 TABLET BY MOUTH EVERY DAY IN THE MORNING 90 tablet 2 glucose blood (FREESTYLE LITE) test strip Use 1 strip to skin twice a day as directed 100 each 3 glucose blood (OneTouch Verio) test strip TEST BLOOD SUGAR TWICE DAILY 100 strip 11 Lancets (OneTouch Delica Plus [id number]) misc USE TO TEST BLOOD SUGAR TWICE DAILY 100 each 11 lisinopril 20 MG tablet TAKE 1 TABLET BY MOUTH EVERY DAY IN THE MORNING 90 tablet 2 metFORMIN (Glucophage) 1000 MG tablet TAKE 1 TABLET BY MOUTH TWICE DAILY WITH MEALS 180 tablet 2 [DISCONTINUED] Diclofenac Sodium (Voltaren Arthritis Pain) 1 % gel BID PRN to affected area 100 g 1 [DISCONTINUED] lidocaine (Xylocaine) 5 % ointment APPLY TOPICALLY EVERY DAY NEEDED FOR FOR MILD PAIN 35.44 g 1 No current facility-administered medications on file prior to visit. I, Shannan Duggan, am serving as a scribe to document services personally performed by Dr. Ale Sanches, based on the patient's response to questions by provider and provider's statements to me. documented in this encounter Miscellaneous Notes * Assessment & Plan Note - Shannan Duggan MA - 11/20/2024 10:58 AM EST Associated Problem(s): Obstructive sleep apnea syndrome Not using CPAP, not interested in repeating sleep study at this time. We discussed the risk of untreated sleep apnea including cardiovascular and neurology complications. Advised weight reduction. FU on next appointment. * Assessment & Plan Note - Shannan Duggan MA - 11/20/2024 10:54 AM EST Associated Problem(s): Trigger middle finger of left hand He declined referral to OT, I advised him to use Diclofenac gel PRN and re consult steroid injection PRN. * Assessment & Plan Note - Shannan Duggan MA - 11/20/2024 10:53 AM EST Associated Problem(s): Diabetes mellitus (CMS/HCC) Controlled. Continue on Metformin 1000 mg + Glipizide. Counseled re more frequent low calorie/carb meals. Check fgstk once daily Encouraged physical activity as tolerated. FU in 3 months with labs. Pt declined influenza and Covid vaccine today. Ophthalmology evaluation is UTD as on 09/2024. I gave him information regarding dental clinic so he can schedule an appointment. * Assessment & Plan Note - Shannan Duggan MA - 11/20/2024 10:51 AM EST Associated Problem(s): Overweight Discussed re weight reduction options including exercise, life style modifications, diet. Recommended to decrease soda and sugary beverage consumption, increase protein intake with meals (at least 1 portion of protein with each meal) to assist with satiety, increase dietary fiber Recommended at least 150 min/week of moderate intensity exercise. documented in this encounter Plan of Treatment Upcoming Encounters Date Type Department Care Team (Late st Contact Info) Description 12/14/2024 10:30 AM EDT Office Visit [facility] ADULT DENTAL [address] [place] [address] Sawyer Mercer, ANIRUDH [address] [place] [address] 02/11/2025 11:45 AM EDT Office Visit [facility] MEDICINE [address] [place] [address] Ale Sanches MD [address] [place] [address] 04/21/2025 10:30 AM EDT Office Visit [facility] OPTOMETRY [address] [place] [address] Shasta Ortiz, OD [address] [place] [address] documented as of this encounter Procedures Procedure Name Priority Date/Time Associated Diagnosis Comments POCT GLUCOSE Routine 11/20/2024 10:25 AM EST Type 2 diabetes mellitus without complication, without long-term current use of insulin ([facility]) documented in this encounter Results * POCT Glucose (11/20/2024 10:25 AM EST) Glucose Blood, POC 152 60 - 200 mg/dL QC Media Lot # [id number] Lot# Expiration Date Blood Capillary blood specimen / Unknown 11/20/2024 10:25 AM EST Ale Sanches MD POINT OF CARE TEST ENTER /EDIT ORDERABLES Final Result documented in this encounter Visit Diagnoses Diagnosis Trigger middle finger of left hand- Primary Type 2 diabetes mellitus without complication, without long-term current use of insulin ([facility]) Overweight Dietary counseling Dietary surveillance and counseling Exercise counseling Obstructive sleep apnea syndrome Obstructive sleep apnea (adult) (pediatric) documented in this encounter Additional Health Concerns Assessment Noted Time PHQ-9 Depression Total Score: 0 12/23/19 24 10:56 AM EDT documented as of this encounter Care Teams [employer] Senior Officer Relationship Specialty Start Date End Date Ale Sanches MD [address] [place] [address] PCP - General Internal Medicine 05/26/24 documented as of this encounter
--- OUTSIDE RECORDS SUMMARY | 2024-11-23 08:42 | XMS_ITS | Patient Health Record ---
Author Organization [employer] Address [address] [place] [address] Care Team Providers Care Supervisor [employer] Name Role Phone Blanco Easton Unavailable [phone] Allergies No Known Allergies Reason For Referral No Information Medications Medication SIG (Take, Route, Frequency, Duration) Notes Start Date End Date Status Fluticasone Propionate 50 MCG/ACT 1 spray in each nostril Nasally Once a day for 30 day(s) Active Lancets 33G test sc twice for 90 days Active Meclizine HCl 25 MG as directed Orally o ne a day for 30 days Active Alcohol Pads test sc twice a day for 90 days 04/24/2022 Active metFORMIN HCl 1000 MG 1 tablet with a me al Orally twice a day for 90 days Active glipiZIDE ER 10 MG 1 tablet with breakf ast Orally Once a day for 90 days Active Atorvastatin Calcium 40 MG 1 tablet Oral ly Once a day for 90 days Active Lisinopril 10 MG 1 tablet Orally Once a day for 90 days Active Lidocaine 5 % 1 application as nee ded Externally Three times a day Active Azithromycin 500 MG 1 tablet Orally once a day for 5 days Active Blood Glucose Meter test sc twice a day for 90 days Active Blood Glucose Test Strip test sc twice for 90 days Active Immunizations Vaccine Route Administration Date Status Comme nts COVID-19 Vaccine Moderna IM Intramuscular 10/06/2021 Administered [facility]:[id number] Eboni Green 10/06/2021 04:54:00 PM EST > Social History Tobacco Use: Social History Observation Description Date Details (start date - stop date) Current Smoker NA - NA Tobacco Use/Smoking Question Answer Notes Are you a current smoker How often do you smoke cigarettes? every day How many cigarettes a day do you smoke? 21-30 How soon after you wake up d o you smoke your first cigarette? 31-60 minutes Are you interested in quitting? Thinking about q uitting Additional Findings: Tobacco User Very h eavy cigarette smoker (40+ cigs/day) Additional Findings: Tobacco Non-User Current no n-smoker Alcohol Screen (Audit-C) Question Answer Notes Did you have a drink containing alcohol in the p ast year? No Points 0 Interpretation Negative Tobacco use other than smoking: Question Answer Notes Are you an other tobacco user? No Problems Problem Type SNOMED Code ICD Code Onset Dates Problem Status W/U Status Risk Notes Problem 107787287 Mixed hyperlipidemia (E78.2) Active confirmed On Atorvastatin . Problem 05656164 Essential (primary) hypertension (I10) Active confirmed On Lisinopril. Problem 94633204 Type 2 diabetes mellitus with other specified complication, without long-term current use of insulin (E11.69) Active confirmed Mixed hyperlipidemia due to Diabetes mellitus , on current treatment with Metformin and Atorvastatin Problem 37552233 Polyp of colon, unspecified part of colon, unspecified type (K63.5) Active confirmed Problem 43258981 Fecal occult blood test positive (R19.5) Active confirmed Problem History of polyp of colon (586187782) H/O adenomatous polyp of colon (Z86.010) Active confirmed Problem 84002904 Smoker (F17.200) Active confirmed Smoking cessation is recommended. Problem 129853204 Vertigo (R42) Active confirmed Plan Of Treatment Pending Test Test Name Order Date FECAL GLOBIN BY IMMUNOCHEM. (MEDICARE) 0 12/25/2021 PCP - COA 10/02/2021 Future Test Test Name Order Date EKG 10/02/2021 PCP - Pulmonary Function Test 10/02/2021 CBC With Differential/Platelet 2 Hemoglobin A1c 04/17/2022 Urinalysis, Complete 04/17/2022 Lipid Panel 04/17/2022 TSH Rfx on Abnormal to Free T4 2 PSA (Reflex To Free) (Serial) 04/17/2022 Albumin/Creat Ratio, Random Ur 2 Insurance Providers Payer Name Payer Address Payer Phone Subscriber Number Group Number Insured Name Patient Relationship to Insured Coverage Start Date Coverage End Date [employer] [address] [address] [place] [phone] [id number] Teofilo Neal Self - patient is the insured Medical (General) History Medical History History ICD Code hyperglycemia hypertension
[2024-11-23 12:03] LABS: Anion Gap 12 (12-20); Blood Urea Nitrogen 22 mg/dL (9-16); Calcium 9.6 mg/dL (8.4-10.2); Carbon Dioxide 26 mmol/L (22-29); Chloride 110 mmol/L (96-108); Cholesterol 85 mg/dL (<200); Estimated Glomerular Filt Rate > 60; Glucose Random 126 mg/dL (60-115); HDL Cholesterol 26 mg/dL (>40); LDL Cholesterol Calculated 39 mg/dL (<100); Potassium 4.9 mmol/L (3.3-5.1); Sodium 143 mmol/L (135-145); Triglycerides 100 mg/dL (<150)
[2024-11-23 12:25] LABS: Creatinine Urine 156.29 mg/dL; Microalbum/Creatinine Ratio Ur 4.4 ug/mg cr (<30)
[2024-11-23 12:44] LABS: Reflex LDLD? No
== END 2024-11-23 08:24 | disposition home or self-care (01) ==
LOC: HO.HHCL 08:23
PROVIDERS: Visit Provider Internal Medicine
DX: E13.69 Other specified diabetes mellitus with other specified complication (principal)
CPT/HCPCS: 36415; 80048; 80061; 82043; 82570